=== PATIENT | male | born 1990 | race Caucasian/White ===

== ENCOUNTER 2016-08-15 11:05 | Emergency (ER) | payer OTHER ==
[~2016-08-15] VITALS: Ht 182.9 cm; Wt 94.4 kg
[~2016-08-15 11:05] MED LIST: 24HOUR ALLERGY10 MG PO; ACIDOPHILUS LA1 EACH PO; ALEVE220 MG PO; ATIVAN1 MG PO; AUGMENTIN875 MG PO; BLOOD LANCETS1 EACH MC; CLONAZEPAM1 MG PO; CLONAZEPAM2 MG PO; COUMADIN5 MG PO; COUMADIN7.5 MG PO; CYMBALTA60 MG PO; DESYREL 150 MG150 MG PO; DESYREL100 MG PO; DULOXETINE HCL60 MG PO; DURAGESIC100 MCG TD; DURAGESIC50 MCG TD; FENTANYL1 EAC1 TD; FEOSOL325 MG PO; FERROUS SULFAT325 MG PO; FOLIC ACID1 MG PO; GABAPENTIN600 MG PO; GABAPENTIN800 MG PO; GLUCOCARD VITA1 EAC2 MC; GLUCOCOM LANCE1 EAC1 MC; GLUCOPHAGE500 MG PO; HUMALOG100 UNIT/1 SC; IMIQUIMOD1 EACH TP; IRON325 MG PO; KLONOPIN1 MG PO; KLONOPIN2 MG PO; LANTUS 3 M100 UNITS1 SC; LEVEMIR FL100 UNIT/1 SC; LEVEMIR100 UNIT/2 SC; LEVOFLOXACIN750 MG PO; LIBRIUM25 MG PO; LOVENOX150 MG/1 M SC; LOVENOX80 MG/0.8 SC; METRONIDAZOLE500 MG PO; NEURONTIN600 MG PO; NICODERM CQ1 EAC2 TD; NICOTINE PATCH1 EAC2 TD; NOVOLOG 10100 UNITS/ SC; NOVOLOG MI100 UNIT/4 SC; NOVOLOG PE100 UNITS/ SC; OLANZAPINE10 MG PO; OXYCODONE HCL10 MG PO; OXYCODONE HCL15 MG PO; OXYCODONE HCL5 MG PO; OXYCODONE-APAP1 EACH PO; PANTOPRAZOLE SO40 MG PO; PERCOCET 5/31 TABLET PO; PROBIOTIC1 EAC1 PO; QUETIAPINE FUM100 MG PO; QUETIAPINE FUMA50 MG PO; ROXICODONE15 MG PO; SEROQUEL100 MG PO; SEROQUEL50 MG PO; SERTRALINE HCL100 MG PO; SILVER NITRATE1 EACH TP; SYMBICORT60 INHALAT IH; TRAZODONE HCL150 MG PO; TYLENOL EXTRA500 MG PO; VENTOLIN HFA18 GM IH; VITAMIN B12-FO1 EACH PO; WARFARIN SODIU7.5 MG PO; WARFARIN SODIUM1 MG PO; WARFARIN SODIUM5 MG PO; XARELTO15 MG PO; XARELTO20 MG PO; ZOLOFT100 MG PO; ZYRTEC10 M2 PO; ZYRTEC10 M3 PO; [UNRECOGNIZED DRUG - OTHER] MC; [UNRECOGNIZED DRUG - REMARK]
[2016-08-15 12:15] LABS: HEMATOCRIT 41.6 % (38.0-50.0); MCH 27.5 PG (29.0-34.0); MCHC 32.7 G/DL (30.0-36.0); MEAN PLAT.VOLUME 9.7 uM^3 (9.0-12.4); PLATELET COUNT 359 K/uL (156-360); RBC DIS.WIDTH-CV 18.3 % (11.8-14.6); RBC DIS.WIDTH-SD 56.6 % (39-53); RED BLOOD COUNT 4.95 M/uL (4.00-5.50)
[2016-08-15 12:58] LABS: CHLORIDE 105 mEq/L (99-109); POTASSIUM 3.2 mEq/L (3.7-5.4); SODIUM 141 mEq/L (136-147)
[2016-08-15 13:00] LABS: GLUCOSE 70 mg/dL (70-99)
[2016-08-15 13:01] LABS: ANION GAP 8 MEQ/L (2-14)
[2016-08-15 13:02] LABS: TOTAL BILIRUBIN 0.2 mg/dL (0.0-1.0)
[2016-08-15 13:03] LABS: ALKALINE PHOSPHATASE 95 IU/L (3-129); SERUM ETHYL ALCOHOL < 10 mg/dL
[2016-08-15 13:04] LABS: GFR ESTIMATE (CALCULATED) > 59 mL/min/
[2016-08-15 13:05] LABS: UREA NITROGEN (BUN) 10 mg/dL (9-23)
[2016-08-15 13:07] LABS: CREATINE KINASE 106 IU/L (1-294)
[2016-08-15 13:54] LABS: ADD MIUA? NO; BILIRUBIN NEGATIVE; BLOOD NEGATIVE; COLOR YELLOW ((YELLOW)); GLUCOSE (STRIP) >=1000; KETONES NEGATIVE; LEUKOCYTES NEGATIVE; NITRITE NEGATIVE; PROTEIN (STRIP) NEGATIVE; SPECIFIC GRAVITY 1.021 (1.000-1.030); UCUL ADDED? NO; UROBILINOGEN 0.2 MG/DL (0.2-1.0)
[2016-08-15 14:04] LABS: ADD MEDTOX COMMENT Y; AMPHETAMINE PRESUMPTIVE POSITIVE (500 ng/mL); BARBITURATES NEGATIVE (200 ng/mL); BENZODIAZEPINES NEGATIVE (150 ng/mL); COCAINE PRESUMPTIVE POSITIVE (150 ng/mL); INTERNAL CONTROLS VALID? YES; METHADONE NEGATIVE (200 ng/mL); METHAMPHETAMINE NEGATIVE (500 ng/mL); OPIATES (MORPHINE) PRESUMPTIVE POSITIVE (100 ng/mL); OXYCODONE NEGATIVE (100 ng/mL); PHENCYCLIDINE NEGATIVE (25 ng/mL); PROPOXYPHENE NEGATIVE (300 ng/mL); THC CANNABINOIDS NEGATIVE (50 ng/mL); TRICYCLIC ANTIDEPRESSANTS NEGATIVE (300 ng/mL)
[2016-08-15 15:23] VITALS: BP 106/58
== END 2016-08-15 15:24 | disposition home or self-care (01) ==
LOC: EME 11:05
PROVIDERS: Emergency Medicine
DX: F19.10 Other psychoactive substance abuse, uncomplicated (principal); E87.6 Hypokalemia; J45.909 Unspecified asthma, uncomplicated; G89.29 Other chronic pain; K21.9 Gastro-esophageal reflux disease without esophagitis; E11.9 Type 2 diabetes mellitus without complications; B19.20 Unspecified viral hepatitis C without hepatic coma; Z86.711 Personal history of pulmonary embolism; Z79.4 Long term (current) use of insulin; F17.200 Nicotine dependence, unspecified, uncomplicated
CPT/HCPCS: 80053; 81003; 82550; 84999; 85027; 99281; 99285; G0480; J7030

== ENCOUNTER 2016-09-11 13:53 | Emergency (ER) | payer OTHER ==
[~2016-09-11] VITALS: Ht 185.4 cm; Wt 87.9 kg
[2016-09-11 14:30] VITALS: BP 123/79
[2016-09-11 14:51] LABS: MCH 28.4 PG (29.0-34.0); MCHC 33.3 G/DL (30.0-36.0); MCV 85.3 FL (86-99); RBC DIS.WIDTH-CV 17.1 % (11.8-14.6); RBC DIS.WIDTH-SD 53.5 % (39-53); RED BLOOD COUNT 4.57 M/uL (4.00-5.50); WHITE BLOOD COUNT 7.5 K/uL (4.1-10.2)
[2016-09-11 15:03] LABS: CHLORIDE 100 mEq/L (99-109); POTASSIUM 4.6 mEq/L (3.7-5.4); SODIUM 133 mEq/L (136-147)
[2016-09-11 15:06] LABS: ANION GAP 12 MEQ/L (2-14)
[2016-09-11 15:07] LABS: TOTAL BILIRUBIN 0.3 mg/dL (0.0-1.0)
[2016-09-11 15:09] LABS: ALKALINE PHOSPHATASE 110 IU/L (3-129); GFR ESTIMATE (CALCULATED) > 59 mL/min/
[2016-09-11 15:10] LABS: UREA NITROGEN (BUN) 11 mg/dL (9-23)
[2016-09-11 15:16] LABS: TROP-I INTERPRETATION NEGATIVE; TROPONIN-I < 0.01 ng/mL (0.0-0.30)
[2016-09-11 15:27] LABS: INTER. NORMALIZED RATIO 1.5
[2016-09-11 15:31] VITALS: BP 111/65
[2016-09-11 15:31] LABS: GLUCOSE 525 mg/dL (70-99)
[2016-09-11 16:00] VITALS: BP 124/80
[2016-09-11 16:28] LABS: MEAN PLAT.VOLUME 11.3 uM^3 (9.0-12.4)
[2016-09-11 16:31] VITALS: BP 119/74
[2016-09-11 16:57] LABS: PLATELET COUNT 207 K/uL (156-360)
[2016-09-11] MEDS ORDERED: ZITHROMAX250 MG PO (16:59)
[2016-09-11 17:00] VITALS: BP 119/74
[2016-09-11 17:00] LABS: POINT-OF-CARE METER ID UU13113702
== END 2016-09-11 17:05 | disposition left against medical advice (07) ==
LOC: EME → EDBD 13:53 → EME 17:05
PROVIDERS: Emergency Medicine
DX: J18.9 Pneumonia, unspecified organism (principal); E11.65 Type 2 diabetes mellitus with hyperglycemia; M25.512 Pain in left shoulder; M54.2 Cervicalgia; Z86.711 Personal history of pulmonary embolism; Z86.718 Personal history of other venous thrombosis and embolism; Z79.01 Long term (current) use of anticoagulants; J45.909 Unspecified asthma, uncomplicated; G89.29 Other chronic pain; Z79.4 Long term (current) use of insulin; Z79.891 Long term (current) use of opiate analgesic; F17.200 Nicotine dependence, unspecified, uncomplicated
CPT/HCPCS: 71275; 80053; 82948; 84484; 85027; 85610; 93005; 99281; 99284

== ENCOUNTER 2016-09-17 21:11 | Emergency (ER) | payer OTHER ==
[~2016-09-17] VITALS: Ht 185.4 cm; Wt 83.7 kg
[~2016-09-17 21:11] MED LIST changes: +ZITHROMAX250 MG PO
[2016-09-17 22:51] LABS: HEMATOCRIT 37.9 % (38.0-50.0); MCH 28.8 PG (29.0-34.0); MCHC 33.8 G/DL (30.0-36.0); MCV 85.4 FL (86-99); RBC DIS.WIDTH-CV 16.3 % (11.8-14.6); RBC DIS.WIDTH-SD 50.1 % (39-53); RED BLOOD COUNT 4.44 M/uL (4.00-5.50); WHITE BLOOD COUNT 6.9 K/uL (4.1-10.2)
[2016-09-17 23:00] LABS: CHLORIDE 94 mEq/L (99-109); POTASSIUM 4.4 mEq/L (3.7-5.4); SODIUM 131 mEq/L (136-147)
[2016-09-17 23:03] LABS: ANION GAP 16 MEQ/L (2-14)
[2016-09-17 23:05] LABS: ALKALINE PHOSPHATASE 96 IU/L (3-129)
[2016-09-17 23:06] LABS: GFR ESTIMATE (CALCULATED) > 59 mL/min/
[2016-09-17 23:06] LABS: AMPHETAMINE NEGATIVE (500 ng/mL); BARBITURATES NEGATIVE (200 ng/mL); BENZODIAZEPINES NEGATIVE (150 ng/mL); COCAINE NEGATIVE (150 ng/mL); METHADONE NEGATIVE (200 ng/mL); METHAMPHETAMINE NEGATIVE (500 ng/mL); OPIATES (MORPHINE) NEGATIVE (100 ng/mL); OXYCODONE NEGATIVE (100 ng/mL); PHENCYCLIDINE NEGATIVE (25 ng/mL); PROPOXYPHENE NEGATIVE (300 ng/mL); THC CANNABINOIDS PRESUMPTIVE POSITIVE (50 ng/mL); TRICYCLIC ANTIDEPRESSANTS NEGATIVE (300 ng/mL)
[2016-09-17 23:07] LABS: UREA NITROGEN (BUN) 14 mg/dL (9-23)
[2016-09-17 23:07] LABS: ADD MEDTOX COMMENT Y; INTERNAL CONTROLS VALID? YES
[2016-09-17 23:08] LABS: INTER. NORMALIZED RATIO 2.9; PROTHROMBIN TIME 30.9 (9.2-11.2)
[2016-09-17 23:09] LABS: LIPASE 14 U/L (1.0-51.0)
[2016-09-17 23:26] LABS: MEAN PLAT.VOLUME 10.1 uM^3 (9.0-12.4)
[2016-09-17 23:32] LABS: ADD MIUA? NO; BILIRUBIN NEGATIVE; BLOOD NEGATIVE; COLOR YELLOW ((YELLOW)); GLUCOSE (STRIP) >=1000; KETONES 40; LEUKOCYTES NEGATIVE; NITRITE NEGATIVE; PROTEIN (STRIP) NEGATIVE; SPECIFIC GRAVITY 1.038 (1.000-1.030); UCUL ADDED? NO; UROBILINOGEN 0.2 MG/DL (0.2-1.0)
[2016-09-17 23:33] LABS: GLUCOSE 599 mg/dL (70-99); TOTAL BILIRUBIN 0.1 mg/dL (0.0-1.0)
[2016-09-17 23:41] LABS: PLATELET COUNT 290 K/uL (156-360)
[2016-09-18 01:19] LABS: POINT-OF-CARE METER ID UU14100415; POINT-OF-CARE USER ID HMLKAV
[2016-09-18 02:07] LABS: CHLORIDE 103 mEq/L (99-109); POTASSIUM 3.9 mEq/L (3.7-5.4); SODIUM 137 mEq/L (136-147)
[2016-09-18 02:09] LABS: GLUCOSE 330 mg/dL (70-99)
[2016-09-18 02:11] LABS: ANION GAP 13 MEQ/L (2-14)
[2016-09-18 02:13] LABS: GFR ESTIMATE (CALCULATED) > 59 mL/min/
[2016-09-18 02:14] LABS: UREA NITROGEN (BUN) 11 mg/dL (9-23)
[2016-09-18 03:01] VITALS: BP 94/58
== END 2016-09-18 03:02 | disposition home or self-care (01) ==
LOC: EME 21:11
PROVIDERS: Emergency Medicine
DX: E10.65 Type 1 diabetes mellitus with hyperglycemia (principal); E86.0 Dehydration; R53.1 Weakness; F19.10 Other psychoactive substance abuse, uncomplicated; Z79.4 Long term (current) use of insulin; J45.909 Unspecified asthma, uncomplicated; K21.9 Gastro-esophageal reflux disease without esophagitis; Z86.711 Personal history of pulmonary embolism; F17.200 Nicotine dependence, unspecified, uncomplicated; Z79.01 Long term (current) use of anticoagulants; Z79.891 Long term (current) use of opiate analgesic
CPT/HCPCS: 71010; 80048; 80053; 81003; 82009; 82800; 82948; 83605; 83690; 84999; 85027; 85610; 85730; 93005; 99281; 99284; J7030

== ENCOUNTER 2016-09-25 14:48 | Inpatient (IN) | payer OTHER ==
[~2016-09-25] VITALS: Ht 188 cm; Wt 78.0 kg
[2016-09-25] VITALS (7 sets, daily range): BP systolic 90–115; BP diastolic 49–69
[2016-09-25 16:00] LABS: BASOPHIL COUNT 0.1 K/uL (0-0.1); EOSINOPHIL (%) 0.6 % (0-5); EOSINOPHIL COUNT 0.1 K/uL (0-0.3); HEMATOCRIT 45.4 % (38.0-50.0); IMMATURE GRANULOCYTE (%) 0.5 % (0.0-0.7); IMMATURE GRANULOCYTE COUNT 0.4 K/uL; LYMPHOCYTE COUNT 2.3 K/uL (1.0-2.8); MCH 28.3 PG (29.0-34.0); MCHC 33.3 G/DL (30.0-36.0); MEAN PLAT.VOLUME 9.8 uM^3 (9.0-12.4); MONOCYTE (%) 9.9 % (3-12); MONOCYTE COUNT 0.8 K/uL (0-0.8); NEUTROPHIL (%) 59.5 % (45-76); NEUTROPHIL COUNT 4.8 K/uL (1.8-6.4); PLATELET COUNT 366 K/uL (156-360); RBC DIS.WIDTH-CV 15.9 % (11.8-14.6); RBC DIS.WIDTH-SD 49.4 % (39-53)
[2016-09-25 16:07] LABS: CHLORIDE 97 mEq/L (99-109); POTASSIUM 4.1 mEq/L (3.7-5.4); SODIUM 131 mEq/L (136-147)
[2016-09-25 16:09] LABS: RED BLOOD COUNT 5.34 M/uL (4.00-5.50)
[2016-09-25 16:10] LABS: INTER. NORMALIZED RATIO 1.2
[2016-09-25 16:11] LABS: ANION GAP 28 MEQ/L (2-14); CARBON DIOXIDE (BICARBONATE) 8.5 MEQ/L (20-31)
[2016-09-25 16:13] LABS: GFR ESTIMATE (CALCULATED) > 59 mL/min/
[2016-09-25 16:16] LABS: GLUCOSE 454 mg/dL (70-99)
[2016-09-25 16:20] LABS: UREA NITROGEN (BUN) 10 mg/dL (9-23)
[2016-09-25] MEDS ORDERED: NEURONTIN600 MG PO (16:43)
[2016-09-25] MEDS ORDERED: COUMADIN7.5 MG PO (16:44)
[2016-09-25 17:16] LABS: Estimated Average Glucose 375 mg/dL (70-123)
[2016-09-25 17:17] LABS: HEMOGLOBIN A1c (GLYCOHEMOGLOB) 14.7 % HGB (Below 5.7)
[2016-09-25 17:57] LABS: POINT-OF-CARE METER ID UU14100415
[2016-09-25 19:34] LABS: METH RESISTANT S AUREUS PCR NEGATIVE (NEGATIVE)
[2016-09-25 19:36] LABS: PROBE CHECK PASS; SPECIMEN PROCESSING CONTROL PASS
[2016-09-25 20:16] LABS: ANION GAP 20 MEQ/L (2-14); CHLORIDE 104 MEQ/L (99-109); POTASSIUM 3.8 MEQ/L (3.7-5.4); SAMPLE HEMOLYSIS CHECK 0; SAMPLE ICTERIC CHECK 0; SAMPLE LIPEMIA CHECK 0; SODIUM 134 MEQ/L (136-147)
[2016-09-25 20:33] LABS: GFR ESTIMATE (CALCULATED) > 59 mL/min/; GLUCOSE 241 mg/dL (70-99); UREA NITROGEN (BUN) 8 mg/dL (9-23)
[2016-09-25 23:14] LABS: INFLUENZA A VIRAL ANTIGEN NEGATIVE; INFLUENZA B VIRAL ANTIGEN NEGATIVE
[2016-09-26] VITALS (20 sets, daily range): BP systolic 86–139; BP diastolic 34–79
[2016-09-26 01:06] LABS: POTASSIUM 3.5 mEq/L (3.7-5.4); SODIUM 136 mEq/L (136-147)
[2016-09-26 01:08] LABS: GLUCOSE 180 mg/dL (70-99)
[2016-09-26 01:10] LABS: ANION GAP 14 MEQ/L (2-14)
[2016-09-26 01:12] LABS: GFR ESTIMATE (CALCULATED) > 59 mL/min/
[2016-09-26 01:13] LABS: UREA NITROGEN (BUN) 8 mg/dL (9-23)
[2016-09-26 01:18] LABS: CHLORIDE 109 mEq/L (99-109)
[2016-09-26 01:54] LABS: POINT-OF-CARE METER ID UU13113803
[2016-09-26 02:56] LABS: POINT-OF-CARE METER ID UU13113803
[2016-09-26 04:13] LABS: CHLORIDE 108 mEq/L (99-109); POTASSIUM 3.9 mEq/L (3.7-5.4); SODIUM 139 mEq/L (136-147)
[2016-09-26 04:14] LABS: GLUCOSE 137 mg/dL (70-99)
[2016-09-26 04:16] LABS: ANION GAP 15 MEQ/L (2-14)
[2016-09-26 04:18] LABS: GFR ESTIMATE (CALCULATED) > 59 mL/min/
[2016-09-26 04:19] LABS: UREA NITROGEN (BUN) 8 mg/dL (9-23)
[2016-09-26 05:05] LABS: POINT-OF-CARE METER ID UU13113803
[2016-09-26 05:29] LABS: POINT-OF-CARE METER ID UU13113803
[2016-09-26 06:31] LABS: POINT-OF-CARE METER ID UU13113803
[2016-09-26 07:35] LABS: AMPHETAMINES QUANT VALUE 0 NG/ML; BARBITUATES QUANT VALUE 0 NG/ML; BENZODIAZEPINES QUANT VALUE 0 NG/ML; BENZODIAZEPINES, URINE SCREEN Negative (200 ng/mL); OPIATES QUANTITATIVE VALUE 0 NG/ML; PHENCYCLIDINE QUANT VALUE 0 NG/ML
[2016-09-26 07:38] LABS: POINT-OF-CARE METER ID UU13113803
[2016-09-26 08:38] LABS: POINT-OF-CARE METER ID UU13113803
[2016-09-26 09:05] LABS: ANION GAP 16 MEQ/L (2-14); CHLORIDE 106 MEQ/L (99-109); POTASSIUM 4.1 MEQ/L (3.7-5.4); SAMPLE HEMOLYSIS CHECK 0; SAMPLE ICTERIC CHECK 0; SAMPLE LIPEMIA CHECK 0; SODIUM 138 MEQ/L (136-147)
[2016-09-26 09:10] LABS: GLUCOSE 123 mg/dL (70-99); UREA NITROGEN (BUN) 8 mg/dL (9-23)
[2016-09-26 09:19] LABS: GFR ESTIMATE (CALCULATED) > 59 mL/min/
[2016-09-26 09:41] LABS: POINT-OF-CARE METER ID UU13113803
[2016-09-26 10:45] LABS: POINT-OF-CARE METER ID UU13113803
[2016-09-26 11:47] LABS: POINT-OF-CARE METER ID UU13113803
[2016-09-26 12:25] LABS: POINT-OF-CARE METER ID UU13113778
[2016-09-26 12:36] LABS: POINT-OF-CARE METER ID UU13113803
[2016-09-26 12:49] LABS: ANION GAP 13 MEQ/L (2-14); CHLORIDE 104 MEQ/L (99-109); POTASSIUM 3.4 MEQ/L (3.7-5.4); SAMPLE HEMOLYSIS CHECK 1; SAMPLE ICTERIC CHECK 0; SAMPLE LIPEMIA CHECK 0; SODIUM 134 MEQ/L (136-147)
[2016-09-26 12:55] LABS: GFR ESTIMATE (CALCULATED) > 59 mL/min/; GLUCOSE 166 mg/dL (70-99); UREA NITROGEN (BUN) 7 mg/dL (9-23)
[2016-09-26 14:50] LABS: POINT-OF-CARE METER ID UU13113803
[2016-09-26 17:13] LABS: ANION GAP 13 MEQ/L (2-14); CHLORIDE 100 MEQ/L (99-109); POTASSIUM 3.7 MEQ/L (3.7-5.4); SAMPLE HEMOLYSIS CHECK 0; SAMPLE ICTERIC CHECK 0; SAMPLE LIPEMIA CHECK 0; SODIUM 132 MEQ/L (136-147)
[2016-09-26 17:14] LABS: POINT-OF-CARE METER ID UU13113803
[2016-09-26 17:19] LABS: GFR ESTIMATE (CALCULATED) > 59 mL/min/; GLUCOSE 318 mg/dL (70-99); UREA NITROGEN (BUN) 5 mg/dL (9-23)
[2016-09-26 21:15] LABS: POINT-OF-CARE METER ID UU13113803
[2016-09-26 22:28] LABS: POINT-OF-CARE METER ID UU13113803
[2016-09-27] VITALS (7 sets, daily range): BP systolic 110–169; BP diastolic 59–94
[2016-09-27 05:56] LABS: POINT-OF-CARE METER ID UU13113803
[2016-09-27 06:09] LABS: POINT-OF-CARE METER ID UU13113803
[2016-09-27 06:10] LABS: HEMATOCRIT 39.3 % (38.0-50.0); MCH 28.8 PG (29.0-34.0); MCHC 34.6 G/DL (30.0-36.0); MCV 83.1 FL (86-99); MEAN PLAT.VOLUME 10.4 uM^3 (9.0-12.4); PLATELET COUNT 258 K/uL (156-360); RBC DIS.WIDTH-CV 15.8 % (11.8-14.6); RBC DIS.WIDTH-SD 47.5 % (39-53); RED BLOOD COUNT 4.73 M/uL (4.00-5.50); WHITE BLOOD COUNT 3.7 K/uL (4.1-10.2)
[2016-09-27 06:40] LABS: ANION GAP 12 MEQ/L (2-14); CHLORIDE 104 MEQ/L (99-109); GFR ESTIMATE (CALCULATED) > 59 mL/min/; MAGNESIUM 1.6 mg/dl (1.3-2.7); POTASSIUM 3.1 MEQ/L (3.7-5.4); SAMPLE HEMOLYSIS CHECK 0; SAMPLE ICTERIC CHECK 0; SAMPLE LIPEMIA CHECK 0; UREA NITROGEN (BUN) 3 mg/dL (9-23)
[2016-09-27 06:45] LABS: GLUCOSE 61 mg/dL (70-99); SODIUM 140 MEQ/L (136-147)
[2016-09-27 07:59] LABS: POINT-OF-CARE METER ID UU14174217
[2016-09-27 12:42] LABS: POINT-OF-CARE METER ID UU14188577
[2016-09-27] MEDS ORDERED: XARELTO20 MG PO (15:00)
[2016-09-27 17:03] LABS: POINT-OF-CARE METER ID UU14149397
[2016-09-28 04:34] VITALS: BP 117/57
[2016-09-28 05:41] LABS: MCH 28.5 PG (29.0-34.0); MCHC 33.6 G/DL (30.0-36.0); MCV 84.9 FL (86-99); MEAN PLAT.VOLUME 10.4 uM^3 (9.0-12.4); PLATELET COUNT 259 K/uL (156-360); RBC DIS.WIDTH-CV 16.2 % (11.8-14.6); RBC DIS.WIDTH-SD 49.7 % (39-53); RED BLOOD COUNT 4.24 M/uL (4.00-5.50); WHITE BLOOD COUNT 4.4 K/uL (4.1-10.2)
[2016-09-28 05:47] LABS: EOSINOPHIL (%) 1.1 % (0-5); EOSINOPHIL COUNT 0.1 K/uL (0-0.3); IMMATURE GRANULOCYTE (%) 0.5 % (0.0-0.7); LYMPHOCYTE COUNT 1.5 K/uL (1.0-2.8); MONOCYTE (%) 11.3 % (3-12); MONOCYTE COUNT 0.5 K/uL (0-0.8); NEUTROPHIL (%) 52.4 % (45-76); NEUTROPHIL COUNT 2.3 K/uL (1.8-6.4)
[2016-09-28 06:07] LABS: ANION GAP 11 MEQ/L (2-14); CHLORIDE 99 MEQ/L (99-109); GFR ESTIMATE (CALCULATED) > 59 mL/min/; MAGNESIUM 1.7 mg/dl (1.3-2.7); SAMPLE HEMOLYSIS CHECK 0; SAMPLE ICTERIC CHECK 0; SAMPLE LIPEMIA CHECK 0; SODIUM 138 MEQ/L (136-147); UREA NITROGEN (BUN) 5 mg/dL (9-23)
[2016-09-28 06:09] LABS: GLUCOSE 323 mg/dL (70-99)
[2016-09-28 07:22] VITALS: BP 120/72
[2016-09-28] MEDS ORDERED: NICOTINE PATCH1 EAC2 TD (12:04)
[2016-09-28] MEDS ORDERED: OXYCODONE HCL15 MG PO (12:04)
[2016-09-28] MEDS ORDERED: FENTANYL1 EAC1 TD (12:04)
[2016-09-28] MEDS ORDERED: XARELTO20 MG PO (12:04)
[2016-09-28] MEDS ORDERED: NEURONTIN600 MG PO (12:04)
[2016-09-28 15:40] VITALS: BP 144/100
[2016-09-28 17:05] VITALS: BP 129/82
== END 2016-09-28 17:51 | disposition home or self-care (01) | DRG 638 ==
LOC: EME 14:48 → 4WEST 17:06 → EDOF 17:06 → 4WEST 18:04 → 3EAST 09-27 11:29
PROVIDERS: Emergency Medicine; Hospitalist; Internal Medicine; Internal Medicine Critical Care Medicine; Internal Medicine Nephrology
DX: E10.10 Type 1 diabetes mellitus with ketoacidosis without coma (principal); R65.10 Systemic inflammatory response syndrome (SIRS) of non-infectious origin without acute organ dysfunction; E83.39 Other disorders of phosphorus metabolism; E86.0 Dehydration; E87.6 Hypokalemia; E10.649 Type 1 diabetes mellitus with hypoglycemia without coma; J45.909 Unspecified asthma, uncomplicated; F32.9 Major depressive disorder, single episode, unspecified; K21.9 Gastro-esophageal reflux disease without esophagitis; B19.20 Unspecified viral hepatitis C without hepatic coma; G89.29 Other chronic pain; F14.90 Cocaine use, unspecified, uncomplicated; F12.90 Cannabis use, unspecified, uncomplicated; F15.90 Other stimulant use, unspecified, uncomplicated; F17.210 Nicotine dependence, cigarettes, uncomplicated; Z79.4 Long term (current) use of insulin; Z79.01 Long term (current) use of anticoagulants; Z91.14 Patient's other noncompliance with medication regimen; Z86.711 Personal history of pulmonary embolism; Z86.718 Personal history of other venous thrombosis and embolism; Z88.5 Allergy status to narcotic agent
CPT/HCPCS: 71010; 80048; 80048 91; 80306 90; 82803; 82948; 83036; 83605; 83735; 84100; 84132 91; 85025; 85027; 85610; 87502; 87641; 93005; 94640; 94640 76; 99281; 99285; J1644; J1815; J3010; J7030; J7040; J7050; J7120

== ENCOUNTER 2016-11-05 21:46 | Emergency (ER) | payer OTHER ==
[~2016-11-05] VITALS: Ht 185.4 cm; Wt 88.4 kg
[2016-11-05 22:34] LABS: HEMATOCRIT 38.1 % (38.0-50.0); MCHC 32.8 G/DL (30.0-36.0); MCV 91.4 FL (86-99); MEAN PLAT.VOLUME 9.6 uM^3 (9.0-12.4); PLATELET COUNT 283 K/uL (156-360); RBC DIS.WIDTH-CV 13.5 % (11.8-14.6); RBC DIS.WIDTH-SD 45.5 % (39-53); RED BLOOD COUNT 4.17 M/uL (4.00-5.50); WHITE BLOOD COUNT 4.8 K/uL (4.1-10.2)
[2016-11-05 22:41] LABS: CHLORIDE 95 mEq/L (99-109); POTASSIUM 4.1 mEq/L (3.7-5.4); SODIUM 131 mEq/L (136-147)
[2016-11-05 22:44] LABS: ANION GAP 15 MEQ/L (2-14)
[2016-11-05 22:45] LABS: GLUCOSE 726 mg/dL (70-99); TOTAL BILIRUBIN 0.4 mg/dL (0.0-1.0)
[2016-11-05 22:46] LABS: ALKALINE PHOSPHATASE 115 IU/L (3-129)
[2016-11-05 22:47] LABS: GFR ESTIMATE (CALCULATED) > 59 mL/min/
[2016-11-05 22:48] LABS: UREA NITROGEN (BUN) 8 mg/dL (9-23)
[2016-11-06 01:03] LABS: CARBON DIOXIDE (BICARBONATE) 32.2 MEQ/L (20-31)
[2016-11-06 01:25] LABS: MAGNESIUM 2.2 mg/dL (1.3-2.7)
[2016-11-06 01:33] LABS: LIPASE 7 U/L (1.0-51.0)
[2016-11-06 01:35] LABS: TROP-I INTERPRETATION NEGATIVE; TROPONIN-I < 0.01 ng/mL (0.0-0.30)
[2016-11-06] MEDS ORDERED: BACTRIM,SEPT1 TABLET PO (04:05)
[2016-11-06 05:00] LABS: POINT-OF-CARE METER ID UU14100415
[2016-11-06 05:09] VITALS: BP 104/57
[2016-11-08 12:30] LABS: POINT-OF-CARE METER ID UU13113778
== END 2016-11-06 05:11 | disposition home or self-care (01) ==
LOC: EME 21:46
PROVIDERS: Emergency Medicine
PROC: 0H9DXZZ Drainage of Right Lower Arm Skin, External Approach (ICD-10-PCS; principal; 2016-11-05)
DX: L02.413 Cutaneous abscess of right upper limb (principal); S93.402A Sprain of unspecified ligament of left ankle, initial encounter; E11.9 Type 2 diabetes mellitus without complications; Z79.4 Long term (current) use of insulin; F19.10 Other psychoactive substance abuse, uncomplicated; Z91.14 Patient's other noncompliance with medication regimen; J45.909 Unspecified asthma, uncomplicated; F31.9 Bipolar disorder, unspecified; K21.9 Gastro-esophageal reflux disease without esophagitis; B19.20 Unspecified viral hepatitis C without hepatic coma; Z86.711 Personal history of pulmonary embolism; F17.200 Nicotine dependence, unspecified, uncomplicated
CPT/HCPCS: 73610; 80053; 81003; 82010; 82803; 82948; 83605; 83690; 83735; 84100; 84484; 85027; 87040; 93971; 99281; 99285; J2405; J3010; J7030

== ENCOUNTER 2016-11-23 21:37 | Inpatient (IN) | payer OTHER ==
[~2016-11-23] VITALS: Ht 185.4 cm; Wt 82.2 kg
[~2016-11-23 21:37] MED LIST changes: +BACTRIM,SEPT1 TABLET PO
[2016-11-23 22:12] LABS: EOSINOPHIL (%) 0.3 % (0-5); HEMATOCRIT 43.7 % (38.0-50.0); IMMATURE GRANULOCYTE (%) 0.4 % (0.0-0.7); INSTRUMENT ABS NEUTROPHIL CT 5.1 K/uL; LYMPHOCYTE COUNT 1.6 K/uL (1.0-2.8); MCH 29.8 PG (29.0-34.0); MCV 90.3 FL (86-99); MEAN PLAT.VOLUME 9.7 uM^3 (9.0-12.4); MONOCYTE (%) 4.5 % (3-12); MONOCYTE COUNT 0.3 K/uL (0-0.8); NEUTROPHIL (%) 71.8 % (45-76); NEUTROPHIL COUNT 5.1 K/uL (1.8-6.4); PLATELET COUNT 393 K/uL (156-360); RBC DIS.WIDTH-CV 13.2 % (11.8-14.6); RBC DIS.WIDTH-SD 43.4 % (39-53); RED BLOOD COUNT 4.84 M/uL (4.00-5.50); WHITE BLOOD COUNT 7.1 K/uL (4.1-10.2)
[2016-11-23 22:19] LABS: CHLORIDE 99 mEq/L (99-109); POTASSIUM 4.3 mEq/L (3.7-5.4); SODIUM 135 mEq/L (136-147)
[2016-11-23 22:22] LABS: ANION GAP 23 MEQ/L (2-14)
[2016-11-23 22:25] LABS: GFR ESTIMATE (CALCULATED) > 59 mL/min/
[2016-11-23 22:26] LABS: UREA NITROGEN (BUN) 17 mg/dL (9-23)
[2016-11-23 22:31] LABS: TROP-I INTERPRETATION NEGATIVE; TROPONIN-I < 0.01 ng/mL (0.0-0.30)
[2016-11-23 22:35] LABS: GLUCOSE 427 mg/dL (70-99)
[2016-11-23] MEDS ORDERED: DURAGESIC50 MCG TD (23:14)
[2016-11-23] MEDS ORDERED: OXYCODONE HCL15 MG PO (23:16)
[2016-11-23] MEDS ORDERED: VYVANSE40 MG PO (23:17)
[2016-11-23 23:46] LABS: POINT-OF-CARE METER ID UU13113702
[2016-11-24] VITALS (23 sets, daily range): BP systolic 83–133; BP diastolic 35–85
[2016-11-24 00:46] LABS: POINT-OF-CARE METER ID UU13113731
[2016-11-24 00:52] LABS: CHLORIDE 104 mEq/L (99-109); POTASSIUM 4.1 mEq/L (3.7-5.4); SODIUM 136 mEq/L (136-147)
[2016-11-24 00:53] LABS: GLUCOSE 312 mg/dL (70-99)
[2016-11-24 00:55] LABS: ANION GAP 18 MEQ/L (2-14)
[2016-11-24 00:57] LABS: GFR ESTIMATE (CALCULATED) > 59 mL/min/
[2016-11-24 00:58] LABS: UREA NITROGEN (BUN) 17 mg/dL (9-23)
[2016-11-24 01:53] LABS: METH RESISTANT S AUREUS PCR NEGATIVE (NEGATIVE)
[2016-11-24 01:55] LABS: POINT-OF-CARE METER ID UU13113731
[2016-11-24 01:55] LABS: PROBE CHECK PASS; SPECIMEN PROCESSING CONTROL PASS
[2016-11-24 02:00] LABS: TROP-I INTERPRETATION NEGATIVE; TROPONIN-I < 0.01 ng/mL (0.0-0.30)
[2016-11-24 02:46] LABS: INTER. NORMALIZED RATIO 1.1; PROTHROMBIN TIME 11.1 (9.2-11.2); PTT 22.7 (25-32)
[2016-11-24 02:57] LABS: POINT-OF-CARE METER ID UU13113731
[2016-11-24 04:24] LABS: POINT-OF-CARE METER ID UU13113731; POINT-OF-CARE USER ID ENVSME70
[2016-11-24 05:46] LABS: POINT-OF-CARE METER ID UU13113803
[2016-11-24 05:50] LABS: ANION GAP 15 MEQ/L (2-14); CHLORIDE 105 MEQ/L (99-109); GFR ESTIMATE (CALCULATED) > 59 mL/min/; GLUCOSE 207 mg/dL (70-99); POTASSIUM 3.8 MEQ/L (3.7-5.4); SAMPLE HEMOLYSIS CHECK 0; SAMPLE ICTERIC CHECK 0; SAMPLE LIPEMIA CHECK 0; SODIUM 138 MEQ/L (136-147); UREA NITROGEN (BUN) 17 mg/dL (9-23)
[2016-11-24 07:08] LABS: POINT-OF-CARE METER ID UU13113803
[2016-11-24 07:57] LABS: POINT-OF-CARE METER ID UU13113803
[2016-11-24 08:14] LABS: ANION GAP 9 MEQ/L (2-14); CHLORIDE 108 MEQ/L (99-109); POTASSIUM 3.6 MEQ/L (3.7-5.4); SAMPLE HEMOLYSIS CHECK 0; SAMPLE ICTERIC CHECK 0; SAMPLE LIPEMIA CHECK 0; SODIUM 138 MEQ/L (136-147)
[2016-11-24 08:20] LABS: GFR ESTIMATE (CALCULATED) > 59 mL/min/; GLUCOSE 222 mg/dL (70-99); UREA NITROGEN (BUN) 15 mg/dL (9-23)
[2016-11-24 09:12] LABS: POINT-OF-CARE METER ID UU13113803
[2016-11-24 09:54] LABS: POINT-OF-CARE METER ID UU13113803
[2016-11-24 10:27] LABS: POINT-OF-CARE METER ID UU13113803
[2016-11-24 11:26] LABS: POINT-OF-CARE METER ID UU13113803
[2016-11-24 11:40] LABS: POINT-OF-CARE METER ID UU13113803
[2016-11-24 12:29] LABS: ANION GAP 6 MEQ/L (2-14); CHLORIDE 107 MEQ/L (99-109); GFR ESTIMATE (CALCULATED) > 59 mL/min/; POTASSIUM 3.5 MEQ/L (3.7-5.4); SAMPLE HEMOLYSIS CHECK 0; SAMPLE ICTERIC CHECK 0; SAMPLE LIPEMIA CHECK 0; SODIUM 136 MEQ/L (136-147); UREA NITROGEN (BUN) 14 mg/dL (9-23)
[2016-11-24 12:34] LABS: POINT-OF-CARE METER ID UU13113803
[2016-11-24 12:36] LABS: GLUCOSE 95 mg/dL (70-99)
[2016-11-24 13:10] LABS: POINT-OF-CARE METER ID UU13113803
[2016-11-24 13:52] LABS: POINT-OF-CARE METER ID UU14162636
[2016-11-24 14:15] LABS: POINT-OF-CARE METER ID UU13113803
[2016-11-24 17:15] LABS: ANION GAP 6 MEQ/L (2-14); CHLORIDE 107 MEQ/L (99-109); SAMPLE HEMOLYSIS CHECK 0; SAMPLE ICTERIC CHECK 0; SAMPLE LIPEMIA CHECK 0; SODIUM 135 MEQ/L (136-147)
[2016-11-24 17:20] LABS: GFR ESTIMATE (CALCULATED) > 59 mL/min/; UREA NITROGEN (BUN) 13 mg/dL (9-23)
[2016-11-24 17:22] LABS: GLUCOSE 325 mg/dL (70-99); POTASSIUM 4.3 MEQ/L (3.7-5.4)
[2016-11-24 18:09] LABS: POINT-OF-CARE METER ID UU13113803
[2016-11-24 20:42] LABS: ANION GAP 6 MEQ/L (2-14); CHLORIDE 104 MEQ/L (99-109); GFR ESTIMATE (CALCULATED) > 59 mL/min/; GLUCOSE 348 mg/dL (70-99); POTASSIUM 4.2 MEQ/L (3.7-5.4); SAMPLE HEMOLYSIS CHECK 0; SAMPLE ICTERIC CHECK 0; SAMPLE LIPEMIA CHECK 1; SODIUM 134 MEQ/L (136-147); UREA NITROGEN (BUN) 11 mg/dL (9-23)
[2016-11-24 21:48] LABS: POINT-OF-CARE METER ID UU14162636; POINT-OF-CARE USER ID PHATLC
[2016-11-25] VITALS (15 sets, daily range): BP systolic 82–148; BP diastolic 42–100
[2016-11-25 01:43] LABS: CHLORIDE 107 mEq/L (99-109); POTASSIUM 3.6 mEq/L (3.7-5.4); SODIUM 139 mEq/L (136-147)
[2016-11-25 01:45] LABS: GLUCOSE 211 mg/dL (70-99)
[2016-11-25 01:46] LABS: ANION GAP 11 MEQ/L (2-14)
[2016-11-25 01:49] LABS: GFR ESTIMATE (CALCULATED) > 59 mL/min/
[2016-11-25 01:50] LABS: UREA NITROGEN (BUN) 9 mg/dL (9-23)
[2016-11-25 02:30] LABS: POINT-OF-CARE METER ID UU13113731; POINT-OF-CARE USER ID PHATLC
[2016-11-25 03:41] LABS: POINT-OF-CARE METER ID UU13113731; POINT-OF-CARE USER ID PHATLC
[2016-11-25 04:32] LABS: POINT-OF-CARE METER ID UU13113731; POINT-OF-CARE USER ID PHATLC
[2016-11-25 05:57] LABS: POINT-OF-CARE METER ID UU14162636; POINT-OF-CARE USER ID PHATLC
[2016-11-25 06:38] LABS: EOSINOPHIL (%) 1.1 % (0-5); EOSINOPHIL COUNT 0.1 K/uL (0-0.3); HEMATOCRIT 37.8 % (38.0-50.0); IMMATURE GRANULOCYTE (%) 0.4 % (0.0-0.7); INSTRUMENT ABS NEUTROPHIL CT 3.7 K/uL; LYMPHOCYTE COUNT 2.8 K/uL (1.0-2.8); MCH 29.6 PG (29.0-34.0); MCHC 33.1 G/DL (30.0-36.0); MCV 89.6 FL (86-99); MONOCYTE (%) 8.2 % (3-12); MONOCYTE COUNT 0.6 K/uL (0-0.8); NEUTROPHIL COUNT 3.7 K/uL (1.8-6.4); RBC DIS.WIDTH-CV 13.1 % (11.8-14.6); RED BLOOD COUNT 4.22 M/uL (4.00-5.50); WHITE BLOOD COUNT 7.2 K/uL (4.1-10.2)
[2016-11-25 06:45] LABS: INTER. NORMALIZED RATIO 1.1; PROTHROMBIN TIME 11.5 (9.2-11.2); PTT 41.1 (25-32)
[2016-11-25 07:00] LABS: Estimated Average Glucose 344 mg/dL (70-123); HEMOGLOBIN A1c (GLYCOHEMOGLOB) 13.6 % HGB (Below 5.7)
[2016-11-25 07:45] LABS: MEAN PLAT.VOLUME 9.8 uM^3 (9.0-12.4); PLAT.SUFFICIENCY ADEQUATE
[2016-11-25 08:26] LABS: PLATELET COUNT 272 K/uL (156-360)
[2016-11-25 10:58] LABS: POINT-OF-CARE METER ID UU14162636
[2016-11-25 11:50] LABS: POINT-OF-CARE METER ID UU13113702
[2016-11-25 14:13] LABS: POINT-OF-CARE METER ID UU14162636
[2016-11-25 17:38] LABS: POINT-OF-CARE METER ID UU13113731
[2016-11-25 21:50] LABS: POINT-OF-CARE METER ID UU14162636
[2016-11-26 01:14] LABS: CHLORIDE 104 mEq/L (99-109); POTASSIUM 3.7 mEq/L (3.7-5.4); SODIUM 139 mEq/L (136-147)
[2016-11-26 01:15] LABS: GLUCOSE 271 mg/dL (70-99)
[2016-11-26 01:17] LABS: ANION GAP 12 MEQ/L (2-14)
[2016-11-26 01:19] LABS: GFR ESTIMATE (CALCULATED) > 59 mL/min/
[2016-11-26 01:20] LABS: UREA NITROGEN (BUN) 7 mg/dL (9-23)
[2016-11-26 02:46] LABS: POINT-OF-CARE METER ID UU14174225
[2016-11-26 06:06] LABS: POINT-OF-CARE METER ID UU14174225; POINT-OF-CARE USER ID BHSKTD
[2016-11-26 06:49] LABS: HEMATOCRIT 39.9 % (38.0-50.0); MCH 30.1 PG (29.0-34.0); MCHC 33.6 G/DL (30.0-36.0); MCV 89.7 FL (86-99); MEAN PLAT.VOLUME 9.8 uM^3 (9.0-12.4); PLATELET COUNT 284 K/uL (156-360); RBC DIS.WIDTH-CV 13.1 % (11.8-14.6); RBC DIS.WIDTH-SD 43.4 % (39-53); RED BLOOD COUNT 4.45 M/uL (4.00-5.50); WHITE BLOOD COUNT 5.6 K/uL (4.1-10.2)
[2016-11-26 07:08] LABS: INTER. NORMALIZED RATIO 1.2
[2016-11-26 07:19] LABS: ANION GAP 8 MEQ/L (2-14); CHLORIDE 106 MEQ/L (99-109); GFR ESTIMATE (CALCULATED) > 59 mL/min/; GLUCOSE 243 mg/dL (70-99); POTASSIUM 3.9 MEQ/L (3.7-5.4); SAMPLE HEMOLYSIS CHECK 0; SAMPLE ICTERIC CHECK 0; SAMPLE LIPEMIA CHECK 0; SODIUM 142 MEQ/L (136-147); UREA NITROGEN (BUN) 7 mg/dL (9-23)
[2016-11-26 07:31] VITALS: BP 94/53
[2016-11-26 09:57] LABS: POINT-OF-CARE METER ID UU14188625
[2016-11-26 11:21] VITALS: BP 129/68
[2016-11-26 11:34] LABS: POINT-OF-CARE METER ID UU14188625
[2016-11-26 15:02] LABS: POINT-OF-CARE METER ID UU14174225
[2016-11-26 17:34] LABS: POINT-OF-CARE METER ID UU14174225
[2016-11-26 19:46] VITALS: BP 137/80
[2016-11-26 21:30] LABS: POINT-OF-CARE METER ID UU14174225
[2016-11-26 23:31] VITALS: BP 94/52
[2016-11-27 00:56] LABS: CHLORIDE 101 mEq/L (99-109); POTASSIUM 4.6 mEq/L (3.7-5.4); SODIUM 137 mEq/L (136-147)
[2016-11-27 00:59] LABS: ANION GAP 10 MEQ/L (2-14)
[2016-11-27 01:01] LABS: GFR ESTIMATE (CALCULATED) > 59 mL/min/
[2016-11-27 01:02] LABS: UREA NITROGEN (BUN) 10 mg/dL (9-23)
[2016-11-27 01:05] LABS: GLUCOSE 391 mg/dL (70-99)
[2016-11-27 03:49] VITALS: BP 112/59
[2016-11-27 06:22] LABS: EOSINOPHIL COUNT 0.1 K/uL (0-0.3); HEMATOCRIT 39.3 % (38.0-50.0); IMMATURE GRANULOCYTE (%) 0.4 % (0.0-0.7); INSTRUMENT ABS NEUTROPHIL CT 2.2 K/uL; LYMPHOCYTE COUNT 2.2 K/uL (1.0-2.8); MCH 30.2 PG (29.0-34.0); MCHC 33.1 G/DL (30.0-36.0); MCV 91.2 FL (86-99); MEAN PLAT.VOLUME 10.3 uM^3 (9.0-12.4); MONOCYTE (%) 8.8 % (3-12); MONOCYTE COUNT 0.4 K/uL (0-0.8); NEUTROPHIL COUNT 2.2 K/uL (1.8-6.4); PLATELET COUNT 286 K/uL (156-360); RBC DIS.WIDTH-CV 13.2 % (11.8-14.6); RBC DIS.WIDTH-SD 45.1 % (39-53); RED BLOOD COUNT 4.31 M/uL (4.00-5.50); WHITE BLOOD COUNT 4.9 K/uL (4.1-10.2)
[2016-11-27 06:54] LABS: INTER. NORMALIZED RATIO 1.1; PROTHROMBIN TIME 10.7 (9.2-11.2)
[2016-11-27 07:38] LABS: ANION GAP 9 MEQ/L (2-14); CHLORIDE 99 MEQ/L (99-109); GFR ESTIMATE (CALCULATED) > 59 mL/min/; POTASSIUM 4.7 MEQ/L (3.7-5.4); SAMPLE HEMOLYSIS CHECK 0; SAMPLE ICTERIC CHECK 0; SAMPLE LIPEMIA CHECK 0; SODIUM 137 MEQ/L (136-147); UREA NITROGEN (BUN) 10 mg/dL (9-23)
[2016-11-27 07:40] LABS: GLUCOSE 414 mg/dL (70-99)
[2016-11-27 07:43] LABS: POINT-OF-CARE METER ID UU14188625
[2016-11-27 07:52] VITALS: BP 114/65
[2016-11-27 12:36] VITALS: BP 155/74
[2016-11-27] MEDS ORDERED: CLONAZEPAM1 MG PO (12:49)
[2016-11-27] MEDS ORDERED: NICOTINE PATCH1 EAC2 TD (12:49)
[2016-11-27] MEDS ORDERED: DURAGESIC50 MCG TD (12:49)
[2016-11-27] MEDS ORDERED: NOVOLOG 10100 UNITS/ SC (12:49)
[2016-11-27] MEDS ORDERED: OXYCODONE HCL15 MG PO (12:49)
[2016-11-27] MEDS ORDERED: XARELTO20 MG PO (12:52)
[2016-11-27] MEDS ORDERED: LEVEMIR100 UNIT/2 SC (12:52)
== END 2016-11-27 15:23 | disposition home or self-care (01) | DRG 638 ==
LOC: EME → EDBD 21:37 → EME 21:37 → 5SOUTH 23:39 → 4WEST 23:39 → EDOF 23:39 → 4WEST 11-24 00:09 → 5SOUTH 11-25 21:42
PROVIDERS: Emergency Medicine; Internal Medicine; Surgery Surgical Critical Care
DX: E10.10 Type 1 diabetes mellitus with ketoacidosis without coma (principal); I82.511 Chronic embolism and thrombosis of right femoral vein; R07.9 Chest pain, unspecified; Z91.14 Patient's other noncompliance with medication regimen; Z86.711 Personal history of pulmonary embolism; B18.2 Chronic viral hepatitis C; F31.9 Bipolar disorder, unspecified; F41.9 Anxiety disorder, unspecified; R56.9 Unspecified convulsions; D64.9 Anemia, unspecified; J45.909 Unspecified asthma, uncomplicated; K21.9 Gastro-esophageal reflux disease without esophagitis; G43.909 Migraine, unspecified, not intractable, without status migrainosus; G89.29 Other chronic pain; F17.200 Nicotine dependence, unspecified, uncomplicated; F14.10 Cocaine abuse, uncomplicated; F11.10 Opioid abuse, uncomplicated
CPT/HCPCS: 70450; 71010; 71101; 80048; 80048 91; 82803; 82948; 83036; 83605; 84100; 84484; 85025; 85027; 85610; 85730; 87641; 93005; 93970; 94640; 94640 76; 99202; 99281; 99285; J1815; J1885; J3010; J3480; J7030; J7040; J7050

== ENCOUNTER 2017-01-01 22:26 | Inpatient (IN) | payer OTHER ==
[~2017-01-01] VITALS: Ht 185.4 cm; Wt 87.2 kg
[~2017-01-01 22:26] MED LIST changes: +VYVANSE40 MG PO
[2017-01-01 23:20] LABS: CARBON DIOXIDE (BICARBONATE) 15.2 MEQ/L (20-31)
[2017-01-01 23:21] LABS: BASOPHIL COUNT 0.1 K/uL (0-0.1); EOSINOPHIL (%) 0.3 % (0-5); HEMATOCRIT 36.4 % (38.0-50.0); IMMATURE GRANULOCYTE (%) 1.7 % (0.0-0.7); IMMATURE GRANULOCYTE COUNT 0.2 K/uL; LYMPHOCYTE COUNT 1.9 K/uL (1.0-2.8); MCH 30.5 PG (29.0-34.0); MCV 92.6 FL (86-99); MEAN PLAT.VOLUME 10.2 uM^3 (9.0-12.4); MONOCYTE (%) 13.3 % (3-12); MONOCYTE COUNT 1.7 K/uL (0-0.8); NEUTROPHIL (%) 69.7 % (45-76); PLATELET COUNT 299 K/uL (156-360); RBC DIS.WIDTH-SD 43.9 % (39-53); RED BLOOD COUNT 3.93 M/uL (4.00-5.50); WHITE BLOOD COUNT 12.9 K/uL (4.1-10.2)
[2017-01-01 23:31] LABS: CHLORIDE 95 mEq/L (99-109); POTASSIUM 4.4 mEq/L (3.7-5.4); SODIUM 131 mEq/L (136-147)
[2017-01-01 23:34] LABS: ANION GAP 24 MEQ/L (2-14)
[2017-01-01 23:35] LABS: TOTAL BILIRUBIN 0.3 mg/dL (0.0-1.0)
[2017-01-01 23:36] LABS: SERUM ETHYL ALCOHOL < 10 mg/dL
[2017-01-01 23:37] LABS: ALKALINE PHOSPHATASE 115 IU/L (3-129); GFR ESTIMATE (CALCULATED) > 59 mL/min/
[2017-01-01 23:38] LABS: UREA NITROGEN (BUN) 17 mg/dL (9-23)
[2017-01-01 23:39] LABS: GLUCOSE 655 mg/dL (70-99)
[2017-01-01 23:40] LABS: LIPASE 34 U/L (1.0-51.0)
[2017-01-02 01:47] LABS: ADD MEDTOX COMMENT Y; AMPHETAMINE NEGATIVE (500 ng/mL); BARBITURATES NEGATIVE (200 ng/mL); BENZODIAZEPINES NEGATIVE (150 ng/mL); COCAINE PRESUMPTIVE POSITIVE (150 ng/mL); INTERNAL CONTROLS VALID? YES; METHADONE NEGATIVE (200 ng/mL); METHAMPHETAMINE NEGATIVE (500 ng/mL); OPIATES (MORPHINE) NEGATIVE (100 ng/mL); OXYCODONE NEGATIVE (100 ng/mL); PHENCYCLIDINE NEGATIVE (25 ng/mL); PROPOXYPHENE NEGATIVE (300 ng/mL); THC CANNABINOIDS PRESUMPTIVE POSITIVE (50 ng/mL); TRICYCLIC ANTIDEPRESSANTS NEGATIVE (300 ng/mL)
[2017-01-02 02:47] LABS: POINT-OF-CARE METER ID UU13113702
[2017-01-02 03:22] LABS: POINT-OF-CARE METER ID UU13113702; POINT-OF-CARE USER ID HMLKAV
[2017-01-02 03:36] VITALS: BP 149/104
[2017-01-02 04:16] VITALS: BP 149/104
[2017-01-02 05:00] VITALS: BP 130/82
[2017-01-02 05:03] LABS: POTASSIUM 3.8 mEq/L (3.7-5.4)
[2017-01-02 05:05] LABS: CHLORIDE 108 mEq/L (99-109); GLUCOSE 192 mg/dL (70-99); SODIUM 139 mEq/L (136-147)
[2017-01-02 05:06] LABS: ANION GAP 16 MEQ/L (2-14)
[2017-01-02 05:09] LABS: GFR ESTIMATE (CALCULATED) > 59 mL/min/
[2017-01-02 05:10] LABS: UREA NITROGEN (BUN) 12 mg/dL (9-23)
[2017-01-02 06:00] VITALS: BP 87/83
[2017-01-02 06:51] LABS: METH RESISTANT S AUREUS PCR NEGATIVE (NEGATIVE)
[2017-01-02 07:00] LABS: PROBE CHECK PASS; SPECIMEN PROCESSING CONTROL PASS
[2017-01-02 07:32] LABS: Estimated Average Glucose 321 mg/dL (70-123); HEMOGLOBIN A1c (GLYCOHEMOGLOB) 12.8 % HGB (Below 5.7)
[2017-01-02 07:46] LABS: POINT-OF-CARE USER ID NUTJLF39
[2017-01-02 08:00] VITALS: BP 122/67
[2017-01-02 08:58] LABS: CHLORIDE 110 mEq/L (99-109); SODIUM 141 mEq/L (136-147)
[2017-01-02 08:59] LABS: MAGNESIUM 2.5 mg/dL (1.3-2.7)
[2017-01-02 09:00] LABS: GLUCOSE 151 mg/dL (70-99)
[2017-01-02 09:01] LABS: ANION GAP 13 MEQ/L (2-14)
[2017-01-02 09:03] LABS: POINT-OF-CARE USER ID NUTJLF39
[2017-01-02 09:04] LABS: GFR ESTIMATE (CALCULATED) > 59 mL/min/
[2017-01-02 09:05] LABS: UREA NITROGEN (BUN) 11 mg/dL (9-23)
[2017-01-02] MEDS ORDERED: FEROSUL325 MG PO (09:23)
[2017-01-02] MEDS ORDERED: ZUBSOLV 8.6-2.1 EACH SL (09:24)
[2017-01-02] MEDS ORDERED: DURAGESIC50 MCG TD (09:25)
[2017-01-02] MEDS ORDERED: ZOLOFT100 MG PO (09:26)
[2017-01-02] MEDS ORDERED: VYVANSE40 MG PO (09:27)
[2017-01-02] MEDS ORDERED: LEVEMIR100 UNIT/2 SC (09:28)
[2017-01-02] MEDS ORDERED: NOVOLOG 10100 UNITS/ SC (09:32)
[2017-01-02] MEDS ORDERED: XARELTO20 MG PO (09:39)
[2017-01-02] MEDS ORDERED: NEURONTIN600 MG PO (09:41)
[2017-01-02] MEDS ORDERED: KLONOPIN1 MG PO (09:42)
[2017-01-02] MEDS ORDERED: SEROQUEL100 MG PO (09:43)
[2017-01-02] MEDS ORDERED: ZYRTEC10 M3 PO (09:44)
[2017-01-02] MEDS ORDERED: OXYCODONE HCL20 M1 PO ×2 (09:45→09:46)
[2017-01-02] MEDS ORDERED: ADVIL200 MG PO ×2 (09:47→09:48)
[2017-01-02] MEDS ORDERED: WART REMOVER TP (09:49)
[2017-01-02] MEDS ORDERED: GOLD BOND MEDI283 G1 TP (09:50)
[2017-01-02] MEDS ORDERED: NICODERM CQ1 EAC2 TD (09:58)
[2017-01-02 13:50] LABS: POINT-OF-CARE USER ID NUTJLF39
[2017-01-02 14:07] LABS: CHLORIDE 106 mEq/L (99-109); SODIUM 137 mEq/L (136-147)
[2017-01-02 14:10] LABS: ANION GAP 12 MEQ/L (2-14)
[2017-01-02 14:12] LABS: GFR ESTIMATE (CALCULATED) > 59 mL/min/
[2017-01-02 14:13] LABS: UREA NITROGEN (BUN) 9 mg/dL (9-23)
[2017-01-02 14:22] LABS: GLUCOSE 231 mg/dL (70-99)
[2017-01-02 16:19] LABS: CHLORIDE 107 mEq/L (99-109); POTASSIUM 3.7 mEq/L (3.7-5.4); SODIUM 138 mEq/L (136-147)
[2017-01-02 16:21] LABS: GLUCOSE 185 mg/dL (70-99)
[2017-01-02 16:22] LABS: ANION GAP 10 MEQ/L (2-14)
[2017-01-02 16:25] LABS: GFR ESTIMATE (CALCULATED) > 59 mL/min/
[2017-01-02 16:26] LABS: UREA NITROGEN (BUN) 9 mg/dL (9-23)
[2017-01-02 17:17] LABS: POINT-OF-CARE USER ID NUTJLF39
[2017-01-02 19:47] VITALS: BP 144/87
[2017-01-02 20:21] LABS: CHLORIDE 106 mEq/L (99-109); POTASSIUM 3.8 mEq/L (3.7-5.4); SODIUM 138 mEq/L (136-147)
[2017-01-02 20:23] LABS: GLUCOSE 247 mg/dL (70-99)
[2017-01-02 20:25] LABS: ANION GAP 11 MEQ/L (2-14)
[2017-01-02 20:27] LABS: GFR ESTIMATE (CALCULATED) > 59 mL/min/
[2017-01-02 20:28] LABS: UREA NITROGEN (BUN) 9 mg/dL (9-23)
[2017-01-02 23:09] LABS: POINT-OF-CARE METER ID UU14174217; POINT-OF-CARE USER ID 609231305
[2017-01-03 08:00] VITALS: BP 125/81
[2017-01-03 10:36] LABS: CHLORIDE 104 mEq/L (99-109); POTASSIUM 3.9 mEq/L (3.7-5.4); SODIUM 137 mEq/L (136-147)
[2017-01-03 10:38] LABS: GLUCOSE 252 mg/dL (70-99)
[2017-01-03 10:40] LABS: ANION GAP 11 MEQ/L (2-14)
[2017-01-03 10:42] LABS: GFR ESTIMATE (CALCULATED) > 59 mL/min/
[2017-01-03 10:43] LABS: UREA NITROGEN (BUN) 6 mg/dL (9-23)
[2017-01-03 12:00] VITALS: BP 126/82
[2017-01-03 14:00] VITALS: BP 129/78
[2017-01-03 21:17] LABS: ADD MIUA? YES; BILIRUBIN NEGATIVE; BLOOD SMALL; COLOR STRAW ((YELLOW)); GLUCOSE (STRIP) >=500; KETONES 5; LEUKOCYTES NEGATIVE; NITRITE NEGATIVE; PROTEIN (STRIP) NEGATIVE; SPECIFIC GRAVITY 1.017 (1.000-1.030); UROBILINOGEN 0.2 MG/DL (0.2-1.0)
[2017-01-03 21:30] LABS: BACTERIA NONE SEEN /HPF; EPITHELIAL CELLS NONE SEEN /HPF; MUCUS NONE SEEN /LPF; RED BLOOD CELLS 0-5 /HPF (0-5); UCUL ADDED? NO; WHITE BLOOD CELLS 0-5 /HPF (0-5)
[2017-01-03 23:55] VITALS: BP 136/79
[2017-01-04 07:00] LABS: ANION GAP 7 MEQ/L (2-14); CHLORIDE 103 MEQ/L (99-109); GFR ESTIMATE (CALCULATED) > 59 mL/min/; GLUCOSE 328 mg/dL (70-99); POTASSIUM 3.7 MEQ/L (3.7-5.4); SAMPLE HEMOLYSIS CHECK 0; SAMPLE ICTERIC CHECK 0; SAMPLE LIPEMIA CHECK 0; SODIUM 139 MEQ/L (136-147); UREA NITROGEN (BUN) 6 mg/dL (9-23)
[2017-01-04 07:09] LABS: HEMATOCRIT 30.7 % (38.0-50.0); MCHC 33.9 G/DL (30.0-36.0); MCV 94.5 FL (86-99); MEAN PLAT.VOLUME 9.8 uM^3 (9.0-12.4); PLATELET COUNT 213 K/uL (156-360); RBC DIS.WIDTH-CV 13.4 % (11.8-14.6); RED BLOOD COUNT 3.25 M/uL (4.00-5.50)
[2017-01-04 07:12] LABS: WHITE BLOOD COUNT 4.5 K/uL (4.1-10.2)
[2017-01-04 07:47] VITALS: BP 123/79
[2017-01-04 15:26] VITALS: BP 145/101
[2017-01-04 20:51] LABS: POINT-OF-CARE METER ID UU13113725
[2017-01-04 22:45] VITALS: BP 132/90
[2017-01-05 07:45] VITALS: BP 125/89
[2017-01-05] MEDS ORDERED: CLONAZEPAM0.5 MG PO (09:13)
[2017-01-05] MEDS ORDERED: LEVEMIR100 UNIT/2 SC (09:13)
[2017-01-05] MEDS ORDERED: XARELTO20 MG PO (09:13)
[2017-01-05] MEDS ORDERED: OXYCODONE HCL5 MG PO (09:13)
[2017-01-05 11:39] LABS: POINT-OF-CARE METER ID UU13113725
[2017-01-05] MEDS ORDERED: OXYCODONE HCL10 MG PO (11:58)
[2017-01-07 11:09] LABS: POINT-OF-CARE METER ID UU14100415
[2017-01-07 11:10] LABS: POINT-OF-CARE METER ID UU14100415
== END 2017-01-05 13:10 | disposition home or self-care (01) | DRG 638 ==
LOC: EME 22:26 → 5EAST 01-02 02:51 → EDOF 01-02 02:51 → 4WEST 01-02 03:36 → 5EAST 01-03 12:25 → EDBD 01-05 13:10
PROVIDERS: Emergency Medicine; Hospitalist; Internal Medicine; Internal Medicine Critical Care Medicine
DX: E10.10 Type 1 diabetes mellitus with ketoacidosis without coma (principal); N17.9 Acute kidney failure, unspecified; F33.9 Major depressive disorder, recurrent, unspecified; F11.20 Opioid dependence, uncomplicated; E87.1 Hypo-osmolality and hyponatremia; D50.9 Iron deficiency anemia, unspecified; B18.2 Chronic viral hepatitis C; F14.10 Cocaine abuse, uncomplicated; F12.10 Cannabis abuse, uncomplicated; F17.210 Nicotine dependence, cigarettes, uncomplicated; Y92.019 Unspecified place in single-family (private) house as the place of occurrence of the external cause; G89.29 Other chronic pain; Z59.0 Homelessness; R33.9 Retention of urine, unspecified; L29.0 Pruritus ani; K64.9 Unspecified hemorrhoids; R91.1 Solitary pulmonary nodule; Z91.14 Patient's other noncompliance with medication regimen; Z86.718 Personal history of other venous thrombosis and embolism; J45.909 Unspecified asthma, uncomplicated; F43.20 Adjustment disorder, unspecified; Z86.711 Personal history of pulmonary embolism; R74.0 Nonspecific elevation of levels of transaminase and lactic acid dehydrogenase [LDH]; Z91.11 Patient's noncompliance with dietary regimen; R51 Headache; R10.9 Unspecified abdominal pain; Y04.2XXA Assault by strike against or bumped into by another person, initial encounter
CPT/HCPCS: 70450; 74176; 76770; 80048; 80048 91; 80076; 81003; 82010; 82803; 82948; 83036; 83690; 83735; 84100; 84999; 85025; 85027; 87641; 99281; 99285; G0480; J1815; J2405; J3010; J7030; J7042; J7050

== ENCOUNTER 2017-01-09 00:35 | Inpatient (IN) | payer OTHER ==
[2017-01-09] VITALS (10 sets, daily range): BP systolic 105–149; BP diastolic 63–95
[~2017-01-09] VITALS: Ht 185.4 cm; Wt 78.9 kg
[~2017-01-09 00:35] MED LIST changes: +ADVIL200 MG PO; +CLONAZEPAM0.5 MG PO; +FEROSUL325 MG PO; +GOLD BOND MEDI283 G1 TP; +OXYCODONE HCL20 M1 PO; +WART REMOVER TP; +ZUBSOLV 8.6-2.1 EACH SL
[2017-01-09 01:24] LABS: BASE EXCESS -15.7 mEq/L (-3 to +3); BICARBONATE 10.2 mEq/L (22-26); CARBOXY HGB 1.1 % (0-5); METHEMOGLOBIN 0.5 % (0-1.5); PCO2 25 mm Hg (35-45); PO2 112 mm Hg (80-100); pH 7.22 (7.35-7.45)
[2017-01-09 01:25] LABS: COMMENTS - BLOOD GASES C+; FI02 21 %; SITE RR
[2017-01-09 01:28] LABS: BASOPHIL COUNT 0.1 K/uL (0-0.1); EOSINOPHIL (%) 0 % (0-5); HEMATOCRIT 47.8 % (38.0-50.0); IMMATURE GRANULOCYTE (%) 2.3 % (0.0-0.7); IMMATURE GRANULOCYTE COUNT 0.2 K/uL; INSTRUMENT ABS NEUTROPHIL CT 6.7 K/uL; LYMPHOCYTE COUNT 0.9 K/uL (1.0-2.8); MCH 30.9 PG (29.0-34.0); MCHC 32.6 G/DL (30.0-36.0); MCV 94.7 FL (86-99); MEAN PLAT.VOLUME 9.5 uM^3 (9.0-12.4); MONOCYTE (%) 5.1 % (3-12); MONOCYTE COUNT 0.4 K/uL (0-0.8); NEUTROPHIL (%) 80.8 % (45-76); NEUTROPHIL COUNT 6.7 K/uL (1.8-6.4); PLATELET COUNT 413 K/uL (156-360); RBC DIS.WIDTH-CV 13.2 % (11.8-14.6); RBC DIS.WIDTH-SD 45.5 % (39-53); RED BLOOD COUNT 5.05 M/uL (4.00-5.50); WHITE BLOOD COUNT 8.3 K/uL (4.1-10.2)
[2017-01-09 01:32] LABS: CHLORIDE 89 mEq/L (99-109); POTASSIUM 5.8 mEq/L (3.7-5.4); SODIUM 127 mEq/L (136-147)
[2017-01-09 01:33] LABS: GLUCOSE 601 mg/dL (70-99)
[2017-01-09 01:34] LABS: ANION GAP 27 MEQ/L (2-14)
[2017-01-09 01:38] LABS: GFR ESTIMATE (CALCULATED) > 59 mL/min/; UREA NITROGEN (BUN) 21 mg/dL (9-23)
[2017-01-09 03:47] LABS: ADD MIUA? NO; BILIRUBIN NEGATIVE; BLOOD NEGATIVE; COLOR STRAW ((YELLOW)); GLUCOSE (STRIP) >=500; KETONES 80; LEUKOCYTES NEGATIVE; NITRITE NEGATIVE; PROTEIN (STRIP) NEGATIVE; SPECIFIC GRAVITY 1.027 (1.000-1.030); UCUL ADDED? NO; UROBILINOGEN 0.2 MG/DL (0.2-1.0)
[2017-01-09 03:55] LABS: POINT-OF-CARE METER ID UU14100415
[2017-01-09 04:35] LABS: CHLORIDE 96 mEq/L (99-109); SODIUM 130 mEq/L (136-147)
[2017-01-09 04:37] LABS: GLUCOSE 367 mg/dL (70-99)
[2017-01-09 04:38] LABS: ANION GAP 20 MEQ/L (2-14); POTASSIUM 4.4 mEq/L (3.7-5.4)
[2017-01-09 04:41] LABS: GFR ESTIMATE (CALCULATED) > 59 mL/min/
[2017-01-09 04:42] LABS: UREA NITROGEN (BUN) 21 mg/dL (9-23)
[2017-01-09 05:00] LABS: POINT-OF-CARE METER ID UU14100415
[2017-01-09 06:06] LABS: POINT-OF-CARE METER ID UU13113731
[2017-01-09 06:40] LABS: METH RESISTANT S AUREUS PCR NEGATIVE (NEGATIVE)
[2017-01-09 06:41] LABS: PROBE CHECK PASS; SPECIMEN PROCESSING CONTROL PASS
[2017-01-09 06:52] LABS: Estimated Average Glucose 318 mg/dL (70-123); HEMOGLOBIN A1c (GLYCOHEMOGLOB) 12.7 % HGB (Below 5.7)
[2017-01-09 07:09] LABS: POINT-OF-CARE METER ID UU13113731
[2017-01-09 07:30] LABS: AMPHETAMINES QUANT VALUE 0 NG/ML; BARBITUATES QUANT VALUE 0 NG/ML; BENZODIAZEPINES QUANT VALUE 0 NG/ML; BENZODIAZEPINES, URINE SCREEN Negative (200 ng/mL); MARIJUANA QUANT VALUE 0 NG/ML; OPIATES QUANTITATIVE VALUE 0 NG/ML; PHENCYCLIDINE QUANT VALUE 0 NG/ML
[2017-01-09 08:39] LABS: POINT-OF-CARE METER ID UU14162636
[2017-01-09 08:46] LABS: TROP-I INTERPRETATION NEGATIVE; TROPONIN-I < 0.01 ng/mL (0.0-0.30)
[2017-01-09 09:12] LABS: ANION GAP 13 MEQ/L (2-14); CHLORIDE 101 MEQ/L (99-109); CREATINE KINASE 24 IU/L (1-294); GFR ESTIMATE (CALCULATED) > 59 mL/min/; GLUCOSE 213 mg/dL (70-99); POTASSIUM 4.3 MEQ/L (3.7-5.4); SAMPLE HEMOLYSIS CHECK 0; SAMPLE ICTERIC CHECK 0; SAMPLE LIPEMIA CHECK 0; SODIUM 132 MEQ/L (136-147); UREA NITROGEN (BUN) 18 mg/dL (9-23)
[2017-01-09 09:31] LABS: POINT-OF-CARE METER ID UU14162636; POINT-OF-CARE USER ID 606021424
[2017-01-09 10:47] LABS: POINT-OF-CARE METER ID UU13113731
[2017-01-09 11:41] LABS: POINT-OF-CARE METER ID UU13113731
[2017-01-09] MEDS ORDERED: FEROSUL325 MG PO (11:44)
[2017-01-09] MEDS ORDERED: ADVIL200 MG PO (11:46)
[2017-01-09] MEDS ORDERED: ROXICODONE15 MG PO (11:48)
[2017-01-09] MEDS ORDERED: KLONOPIN1 MG PO (11:49)
[2017-01-09] MEDS ORDERED: NEURONTIN600 MG PO (11:50)
[2017-01-09] MEDS ORDERED: SEROQUEL100 MG PO (11:51)
[2017-01-09] MEDS ORDERED: ZOLOFT100 MG PO (11:51)
[2017-01-09] MEDS ORDERED: LEVEMIR100 UNIT/2 SC (11:54)
[2017-01-09 12:49] LABS: POINT-OF-CARE METER ID UU13113731
[2017-01-09 13:07] LABS: ANION GAP 12 MEQ/L (2-14); CHLORIDE 101 MEQ/L (99-109); GFR ESTIMATE (CALCULATED) > 59 mL/min/; GLUCOSE 208 mg/dL (70-99); POTASSIUM 4.2 MEQ/L (3.7-5.4); SAMPLE HEMOLYSIS CHECK 0; SAMPLE ICTERIC CHECK 0; SAMPLE LIPEMIA CHECK 0; SODIUM 132 MEQ/L (136-147); UREA NITROGEN (BUN) 16 mg/dL (9-23)
[2017-01-09 13:59] LABS: POINT-OF-CARE METER ID UU14162636
[2017-01-09 14:13] LABS: POINT-OF-CARE METER ID UU14100415
[2017-01-09 15:25] LABS: POINT-OF-CARE METER ID UU14162636
[2017-01-09 16:19] LABS: POINT-OF-CARE METER ID UU14162636; POINT-OF-CARE USER ID 606021424
[2017-01-09 16:43] LABS: ANION GAP 11 MEQ/L (2-14); CHLORIDE 101 MEQ/L (99-109); GFR ESTIMATE (CALCULATED) > 59 mL/min/; GLUCOSE 114 mg/dL (70-99); POTASSIUM 3.8 MEQ/L (3.7-5.4); SAMPLE HEMOLYSIS CHECK 0; SAMPLE ICTERIC CHECK 0; SAMPLE LIPEMIA CHECK 0; SODIUM 133 MEQ/L (136-147); UREA NITROGEN (BUN) 16 mg/dL (9-23)
[2017-01-09 20:46] LABS: ANION GAP 12 MEQ/L (2-14); CHLORIDE 100 MEQ/L (99-109); POTASSIUM 4.4 MEQ/L (3.7-5.4); SAMPLE HEMOLYSIS CHECK 0; SAMPLE ICTERIC CHECK 0; SAMPLE LIPEMIA CHECK 1; SODIUM 132 MEQ/L (136-147)
[2017-01-09 21:19] LABS: GFR ESTIMATE (CALCULATED) > 59 mL/min/; GLUCOSE 388 mg/dL (70-99); UREA NITROGEN (BUN) 17 mg/dL (9-23)
[2017-01-10] VITALS (11 sets, daily range): BP systolic 104–139; BP diastolic 61–92
[2017-01-10 00:46] LABS: POINT-OF-CARE METER ID UU14174217; POINT-OF-CARE USER ID PHATLC
[2017-01-10 01:09] LABS: CHLORIDE 104 mEq/L (99-109); POTASSIUM 4.1 mEq/L (3.7-5.4); SODIUM 131 mEq/L (136-147)
[2017-01-10 01:11] LABS: GLUCOSE 326 mg/dL (70-99)
[2017-01-10 01:12] LABS: ANION GAP 6 MEQ/L (2-14)
[2017-01-10 01:14] LABS: GFR ESTIMATE (CALCULATED) > 59 mL/min/
[2017-01-10 01:15] LABS: UREA NITROGEN (BUN) 17 mg/dL (9-23)
[2017-01-10 02:59] LABS: ADD MIUA? NO; BILIRUBIN NEGATIVE; BLOOD NEGATIVE; COLOR STRAW ((YELLOW)); GLUCOSE (STRIP) >=500; KETONES 20; LEUKOCYTES NEGATIVE; NITRITE NEGATIVE; PROTEIN (STRIP) NEGATIVE; SPECIFIC GRAVITY 1.028 (1.000-1.030); UROBILINOGEN 0.2 MG/DL (0.2-1.0)
[2017-01-10 03:41] LABS: AMPHETAMINES QUANT VALUE 0 NG/ML; BARBITUATES QUANT VALUE 0 NG/ML; BENZODIAZEPINES QUANT VALUE 0 NG/ML; BENZODIAZEPINES, URINE SCREEN Negative (200 ng/mL); MARIJUANA QUANT VALUE 0 NG/ML; OPIATES QUANTITATIVE VALUE 0 NG/ML; PHENCYCLIDINE QUANT VALUE 0 NG/ML
[2017-01-10 03:45] LABS: MAGNESIUM 2.2 mg/dL (1.3-2.7)
[2017-01-10 04:20] LABS: POINT-OF-CARE METER ID UU13113731; POINT-OF-CARE USER ID PHATLC
[2017-01-10 06:14] LABS: HEMATOCRIT 42.6 % (38.0-50.0); MCH 30.4 PG (29.0-34.0); MCHC 32.9 G/DL (30.0-36.0); MCV 92.6 FL (86-99); MEAN PLAT.VOLUME 10.3 uM^3 (9.0-12.4); PLATELET COUNT 311 K/uL (156-360); RBC DIS.WIDTH-CV 13.2 % (11.8-14.6); RBC DIS.WIDTH-SD 44.7 % (39-53); WHITE BLOOD COUNT 5.2 K/uL (4.1-10.2)
[2017-01-10 06:27] LABS: ANION GAP 14 MEQ/L (2-14); CHLORIDE 100 MEQ/L (99-109); GFR ESTIMATE (CALCULATED) > 59 mL/min/; GLUCOSE 189 mg/dL (70-99); POTASSIUM 4.1 MEQ/L (3.7-5.4); SAMPLE HEMOLYSIS CHECK 0; SAMPLE ICTERIC CHECK 0; SAMPLE LIPEMIA CHECK 0; SODIUM 133 MEQ/L (136-147); UREA NITROGEN (BUN) 15 mg/dL (9-23)
[2017-01-10 09:16] LABS: POINT-OF-CARE METER ID UU13113731
[2017-01-10 10:52] LABS: POINT-OF-CARE METER ID UU14162636; POINT-OF-CARE USER ID PHATLC
[2017-01-10 13:11] LABS: ANION GAP 9 MEQ/L (2-14); CHLORIDE 102 MEQ/L (99-109); GFR ESTIMATE (CALCULATED) > 59 mL/min/; GLUCOSE 270 mg/dL (70-99); POTASSIUM 3.6 MEQ/L (3.7-5.4); SAMPLE HEMOLYSIS CHECK 0; SAMPLE ICTERIC CHECK 0; SAMPLE LIPEMIA CHECK 0; SODIUM 134 MEQ/L (136-147); UREA NITROGEN (BUN) 12 mg/dL (9-23)
[2017-01-10 17:39] LABS: POINT-OF-CARE METER ID UU14188625
[2017-01-11 00:34] LABS: POINT-OF-CARE METER ID UU14188625; POINT-OF-CARE USER ID BHSKTD
[2017-01-11 07:13] LABS: ANION GAP 12 MEQ/L (2-14); CHLORIDE 102 MEQ/L (99-109); GFR ESTIMATE (CALCULATED) > 59 mL/min/; GLUCOSE 391 mg/dL (70-99); POTASSIUM 3.5 MEQ/L (3.7-5.4); SAMPLE HEMOLYSIS CHECK 0; SAMPLE ICTERIC CHECK 0; SAMPLE LIPEMIA CHECK 0; SODIUM 139 MEQ/L (136-147); UREA NITROGEN (BUN) 10 mg/dL (9-23)
[2017-01-11 08:21] VITALS: BP 109/55
[2017-01-11 16:42] VITALS: BP 136/80
[2017-01-11 17:10] LABS: POINT-OF-CARE METER ID UU14174225
[2017-01-11 21:56] LABS: POINT-OF-CARE METER ID UU14174225
[2017-01-11 23:35] VITALS: BP 130/83
[2017-01-12 08:07] LABS: POINT-OF-CARE METER ID UU14188625
[2017-01-12 08:28] LABS: ANION GAP 13 MEQ/L (2-14); CHLORIDE 105 MEQ/L (99-109); GFR ESTIMATE (CALCULATED) > 59 mL/min/; GLUCOSE 275 mg/dL (70-99); POTASSIUM 3.8 MEQ/L (3.7-5.4); SAMPLE HEMOLYSIS CHECK 0; SAMPLE ICTERIC CHECK 0; SAMPLE LIPEMIA CHECK 0; SODIUM 142 MEQ/L (136-147); UREA NITROGEN (BUN) 14 mg/dL (9-23)
[2017-01-12 08:32] VITALS: BP 122/70
[2017-01-12 09:54] LABS: FERRITIN 33 NG/ML (22-322)
[2017-01-12] MEDS ORDERED: LEVEMIR100 UNIT/2 SC (11:45)
[2017-01-12] MEDS ORDERED: NOVOLOG PE100 UNITS/ SC (11:45)
[2017-01-12] MEDS ORDERED: IBUPROFEN800 MG PO ×2 (12:22→12:33)
[2017-01-12] MEDS ORDERED: ZOLOFT100 MG PO (12:27)
== END 2017-01-12 13:21 | disposition home or self-care (01) | DRG 638 ==
LOC: EME → EDBD 00:35 → EDOF 03:51 → 4WEST 03:51 → 5SOUTH 03:51 → 4WEST 05:15 → 5SOUTH 01-10 08:43 → 4WEST 01-10 08:51 → 5SOUTH 01-10 13:12
PROVIDERS: Emergency Medicine; Internal Medicine; Obstetrics & Gynecology
DX: E10.10 Type 1 diabetes mellitus with ketoacidosis without coma (principal); E86.0 Dehydration; B18.2 Chronic viral hepatitis C; J45.909 Unspecified asthma, uncomplicated; Z76.5 Malingerer [conscious simulation]; Z91.19 Patient's noncompliance with other medical treatment and regimen; Z59.0 Homelessness; F11.20 Opioid dependence, uncomplicated; G89.4 Chronic pain syndrome; G44.209 Tension-type headache, unspecified, not intractable; F31.9 Bipolar disorder, unspecified; R56.9 Unspecified convulsions; Z86.711 Personal history of pulmonary embolism; S62.91XA Unspecified fracture of right hand, initial encounter for closed fracture; S62.336A Displaced fracture of neck of fifth metacarpal bone, right hand, initial encounter for closed fracture; Y29.XXXA Contact with blunt object, undetermined intent, initial encounter; S62.394A Other fracture of fourth metacarpal bone, right hand, initial encounter for closed fracture; W22.8XXA Striking against or struck by other objects, initial encounter; F99 Mental disorder, not otherwise specified; F60.9 Personality disorder, unspecified; F17.210 Nicotine dependence, cigarettes, uncomplicated
CPT/HCPCS: 36600; 71010; 73130; 80048; 80048 91; 80306 90; 81003; 82010; 82550; 82728; 82803; 82948; 83036; 83735; 84100; 84484; 85025; 85027; 87641; 99281; 99285; J1815; J7030; J7050; J7120

== ENCOUNTER 2017-01-20 17:04 | Emergency (ER) | payer OTHER ==
[~2017-01-20] VITALS: Ht 182.9 cm; Wt 83.8 kg
[~2017-01-20 17:04] MED LIST changes: +IBUPROFEN800 MG PO
[2017-01-20 21:10] LABS: POINT-OF-CARE METER ID UU13113778
[2017-01-20 22:21] LABS: HEMATOCRIT 36.3 % (38.0-50.0); MCH 30.1 PG (29.0-34.0); MCHC 33.1 G/DL (30.0-36.0); MEAN PLAT.VOLUME 9.6 uM^3 (9.0-12.4); PLATELET COUNT 480 K/uL (156-360); RBC DIS.WIDTH-CV 12.9 % (11.8-14.6); RBC DIS.WIDTH-SD 43.3 % (39-53); RED BLOOD COUNT 3.99 M/uL (4.00-5.50); WHITE BLOOD COUNT 7.2 K/uL (4.1-10.2)
[2017-01-20 22:22] LABS: CHLORIDE 102 mEq/L (99-109); POTASSIUM 4.3 mEq/L (3.7-5.4); SODIUM 138 mEq/L (136-147)
[2017-01-20 22:23] LABS: GLUCOSE 350 mg/dL (70-99)
[2017-01-20 22:25] LABS: ANION GAP 14 MEQ/L (2-14)
[2017-01-20 22:27] LABS: GFR ESTIMATE (CALCULATED) > 59 mL/min/
[2017-01-20 22:28] LABS: UREA NITROGEN (BUN) 17 mg/dL (9-23)
[2017-01-20 22:30] LABS: TROP-I INTERPRETATION NEGATIVE; TROPONIN-I < 0.01 ng/mL (0.0-0.30)
[2017-01-21] MEDS ORDERED: NEURONTIN600 MG PO (00:11)
[2017-01-21 00:36] VITALS: BP 109/64
== END 2017-01-21 00:37 | disposition home or self-care (01) ==
LOC: EME 17:04
DX: E11.42 Type 2 diabetes mellitus with diabetic polyneuropathy (principal); E11.65 Type 2 diabetes mellitus with hyperglycemia; Z79.4 Long term (current) use of insulin; K08.89 Other specified disorders of teeth and supporting structures; G89.29 Other chronic pain; Z86.711 Personal history of pulmonary embolism; Z86.718 Personal history of other venous thrombosis and embolism; F17.200 Nicotine dependence, unspecified, uncomplicated
CPT/HCPCS: 71020; 80048; 82948; 84484; 85027; 93005; 99281; 99284

== ENCOUNTER 2017-01-29 10:16 | Emergency (ER) | payer OTHER ==
[~2017-01-29] VITALS: Ht 185.4 cm; Wt 85.1 kg
[2017-01-29 10:26] VITALS: BP 116/94
[2017-01-29 11:20] LABS: POINT-OF-CARE METER ID UU13113702
[2017-01-29 12:03] LABS: HEMATOCRIT 39.3 % (38.0-50.0); MCH 30.3 PG (29.0-34.0); MCHC 33.3 G/DL (30.0-36.0); MEAN PLAT.VOLUME 9.7 uM^3 (9.0-12.4); PLATELET COUNT 397 K/uL (156-360); RBC DIS.WIDTH-CV 12.7 % (11.8-14.6); RBC DIS.WIDTH-SD 42.2 % (39-53); RED BLOOD COUNT 4.32 M/uL (4.00-5.50)
[2017-01-29 12:12] LABS: CHLORIDE 101 mEq/L (99-109); POTASSIUM 3.1 mEq/L (3.7-5.4); SODIUM 141 mEq/L (136-147)
[2017-01-29 12:14] LABS: GLUCOSE 54 mg/dL (70-99)
[2017-01-29 12:16] LABS: ANION GAP 13 MEQ/L (2-14)
[2017-01-29 12:18] LABS: GFR ESTIMATE (CALCULATED) > 59 mL/min/
[2017-01-29 12:19] LABS: UREA NITROGEN (BUN) 9 mg/dL (9-23)
[2017-01-29 12:23] LABS: TROP-I INTERPRETATION NEGATIVE; TROPONIN-I < 0.01 ng/mL (0.0-0.30)
== END 2017-01-29 13:54 | disposition left against medical advice (07) ==
LOC: EME 10:16 → EXP 10:16
PROVIDERS: Physician Assistant
DX: K08.89 Other specified disorders of teeth and supporting structures (principal); E10.649 Type 1 diabetes mellitus with hypoglycemia without coma; R94.31 Abnormal electrocardiogram [ECG] [EKG]; Z86.718 Personal history of other venous thrombosis and embolism; Z79.01 Long term (current) use of anticoagulants
CPT/HCPCS: 71010; 80048; 81003; 82948; 84484; 85027; 93005; 99281; 99284; J2310

== ENCOUNTER 2017-01-30 01:37 | Emergency (ER) | payer OTHER ==
[~2017-01-30] VITALS: Ht 185.4 cm; Wt 83.0 kg
[2017-01-30 03:47] LABS: HEMATOCRIT 38.6 % (38.0-50.0); MCH 30.3 PG (29.0-34.0); MCHC 33.2 G/DL (30.0-36.0); MCV 91.5 FL (86-99); MEAN PLAT.VOLUME 9.3 uM^3 (9.0-12.4); PLATELET COUNT 296 K/uL (156-360); RBC DIS.WIDTH-CV 12.8 % (11.8-14.6); RBC DIS.WIDTH-SD 42.5 % (39-53); RED BLOOD COUNT 4.22 M/uL (4.00-5.50); WHITE BLOOD COUNT 4.9 K/uL (4.1-10.2)
[2017-01-30 03:52] LABS: CHLORIDE 98 mEq/L (99-109)
[2017-01-30 03:55] LABS: ANION GAP 9 MEQ/L (2-14); GLUCOSE 349 mg/dL (70-99); POTASSIUM 4.2 mEq/L (3.7-5.4); SODIUM 133 mEq/L (136-147)
[2017-01-30 03:58] LABS: GFR ESTIMATE (CALCULATED) > 59 mL/min/
[2017-01-30 03:59] LABS: UREA NITROGEN (BUN) 10 mg/dL (9-23)
[2017-01-30 04:38] VITALS: BP 96/77
== END 2017-01-30 04:38 | disposition home or self-care (01) ==
LOC: EME 01:37 → EXP 01:37
PROVIDERS: Emergency Medicine
DX: E10.65 Type 1 diabetes mellitus with hyperglycemia (principal); E10.42 Type 1 diabetes mellitus with diabetic polyneuropathy; Z79.4 Long term (current) use of insulin
CPT/HCPCS: 80048; 82800; 85027; 99281; 99284

== ENCOUNTER 2017-01-31 19:10 | Emergency (ER) | payer OTHER ==
[~2017-01-31] VITALS: Ht 188 cm; Wt 82.6 kg
[2017-01-31 19:35] LABS: CREATININE 0.9 mg/dL (0.6-1.3); POTASSIUM 3.8 mEq/L (3.7-5.4)
[2017-01-31 19:39] LABS: EOSINOPHIL (%) 3.5 % (0-5); EOSINOPHIL COUNT 0.1 K/uL (0-0.3); HEMATOCRIT 33.3 % (38.0-50.0); IMMATURE GRANULOCYTE (%) 0.5 % (0.0-0.7); INSTRUMENT ABS NEUTROPHIL CT 1.7 K/uL; LYMPHOCYTE COUNT 1.5 K/uL (1.0-2.8); MCHC 33.6 G/DL (30.0-36.0); MCV 89.3 FL (86-99); MEAN PLAT.VOLUME 9.5 uM^3 (9.0-12.4); MONOCYTE (%) 14.4 % (3-12); MONOCYTE COUNT 0.6 K/uL (0-0.8); NEUTROPHIL (%) 42.6 % (45-76); NEUTROPHIL COUNT 1.7 K/uL (1.8-6.4); PLATELET COUNT 303 K/uL (156-360); RBC DIS.WIDTH-CV 12.8 % (11.8-14.6); RED BLOOD COUNT 3.73 M/uL (4.00-5.50)
[2017-01-31 19:40] LABS: CARBON DIOXIDE (BICARBONATE) 31.9 MEQ/L (20-31)
[2017-01-31 19:49] LABS: CHLORIDE 93 mEq/L (99-109); POTASSIUM 3.9 mEq/L (3.7-5.4); SODIUM 130 mEq/L (136-147)
[2017-01-31 19:53] LABS: ANION GAP 9 MEQ/L (2-14); TOTAL BILIRUBIN 0.4 mg/dL (0.0-1.0)
[2017-01-31 19:55] LABS: ALKALINE PHOSPHATASE 117 IU/L (3-129); GFR ESTIMATE (CALCULATED) > 59 mL/min/
[2017-01-31 19:56] LABS: UREA NITROGEN (BUN) 8 mg/dL (9-23)
[2017-01-31 19:58] LABS: DIRECT BILIRUBIN 0.2 mg/dL (0.0-0.3)
[2017-01-31 19:59] LABS: LIPASE 5 U/L (1.0-51.0)
[2017-01-31 20:02] LABS: GLUCOSE 710 mg/dL (70-99)
[2017-01-31 20:11] LABS: SERUM ETHYL ALCOHOL < 10 mg/dL
[2017-01-31 21:57] LABS: POINT-OF-CARE METER ID UU14100415
[2017-01-31 22:22] VITALS: BP 129/84
== END 2017-01-31 22:22 | disposition home or self-care (01) ==
LOC: EME 19:10
PROVIDERS: Emergency Medicine
DX: E11.65 Type 2 diabetes mellitus with hyperglycemia (principal); K21.9 Gastro-esophageal reflux disease without esophagitis; F17.200 Nicotine dependence, unspecified, uncomplicated; Z86.718 Personal history of other venous thrombosis and embolism
CPT/HCPCS: 80047; 80048; 80076; 81003; 82803; 82948; 83690; 85025; 99281; 99285; G0480; J2310; J7030

== ENCOUNTER 2017-02-01 12:00 | Emergency (ER) | payer OTHER ==
[~2017-02-01] VITALS: Ht 185.4 cm; Wt 85.5 kg
[2017-02-01 14:18] VITALS: BP 138/82
== END 2017-02-01 14:21 | disposition home or self-care (01) ==
LOC: EME 12:00
DX: S62.398D Other fracture of other metacarpal bone, subsequent encounter for fracture with routine healing (principal); G62.9 Polyneuropathy, unspecified; J45.909 Unspecified asthma, uncomplicated; K21.9 Gastro-esophageal reflux disease without esophagitis; F31.9 Bipolar disorder, unspecified; F17.200 Nicotine dependence, unspecified, uncomplicated
CPT/HCPCS: 99281; 99284

== ENCOUNTER 2017-02-02 13:31 | Emergency (ER) | payer OTHER ==
[~2017-02-02] VITALS: Ht 185.4 cm; Wt 81.7 kg
[2017-02-02 14:29] LABS: HEMATOCRIT 37.3 % (38.0-50.0); MCH 30.1 PG (29.0-34.0); MCHC 33.5 G/DL (30.0-36.0); MCV 89.9 FL (86-99); MEAN PLAT.VOLUME 9.6 uM^3 (9.0-12.4); PLATELET COUNT 302 K/uL (156-360); RBC DIS.WIDTH-CV 12.7 % (11.8-14.6); RBC DIS.WIDTH-SD 41.4 % (39-53); RED BLOOD COUNT 4.15 M/uL (4.00-5.50); WHITE BLOOD COUNT 4.6 K/uL (4.1-10.2)
[2017-02-02 15:10] LABS: ANION GAP 15 MEQ/L (2-14); CHLORIDE 92 MEQ/L (99-109); GFR ESTIMATE (CALCULATED) > 59 mL/min/; POTASSIUM 4.1 MEQ/L (3.7-5.4); SAMPLE HEMOLYSIS CHECK 0; SAMPLE ICTERIC CHECK 0; SAMPLE LIPEMIA CHECK 0; SODIUM 130 MEQ/L (136-147); UREA NITROGEN (BUN) 11 mg/dL (9-23)
[2017-02-02 15:31] LABS: GLUCOSE 685 mg/dL (70-99)
[2017-02-02 16:21] VITALS: BP 111/59
[2017-02-03] MEDS ORDERED: NOVOLOG PE100 UNITS/ SC (22:38)
[2017-02-03] MEDS ORDERED: LEVEMIR100 UNIT/2 SC (22:38)
[2017-02-03] MEDS ORDERED: OXYCODONE HCL15 MG PO (22:39)
[2017-02-03] MEDS ORDERED: VYVANSE40 MG PO (22:39)
[2017-02-03] MEDS ORDERED: FENTANYL1 EAC1 TD (22:39)
[2017-02-03] MEDS ORDERED: XARELTO20 MG PO (22:42)
== END 2017-02-02 16:32 | disposition home or self-care (01) ==
LOC: EME 13:31
DX: E11.65 Type 2 diabetes mellitus with hyperglycemia (principal); E86.0 Dehydration; Z79.4 Long term (current) use of insulin; F32.9 Major depressive disorder, single episode, unspecified; G40.909 Epilepsy, unspecified, not intractable, without status epilepticus; Z88.6 Allergy status to analgesic agent; F17.200 Nicotine dependence, unspecified, uncomplicated
CPT/HCPCS: 80048; 85027; 99281; 99283; J2405; J3010; J7030

== ENCOUNTER 2017-02-03 19:17 | Inpatient (IN) | payer OTHER ==
[~2017-02-03] VITALS: Ht 185.4 cm; Wt 80.0 kg
[2017-02-03 21:07] LABS: CARBON DIOXIDE (BICARBONATE) 18.9 MEQ/L (20-31); HEMATOCRIT 42.2 % (38.0-50.0); MCH 30.1 PG (29.0-34.0); MCHC 32.7 G/DL (30.0-36.0); MCV 92.1 FL (86-99); MEAN PLAT.VOLUME 9.4 uM^3 (9.0-12.4); PLATELET COUNT 357 K/uL (156-360); RBC DIS.WIDTH-CV 12.9 % (11.8-14.6); RBC DIS.WIDTH-SD 43.1 % (39-53); RED BLOOD COUNT 4.58 M/uL (4.00-5.50); WHITE BLOOD COUNT 5.9 K/uL (4.1-10.2)
[2017-02-03 21:16] LABS: CHLORIDE 94 mEq/L (99-109); POTASSIUM 4.3 mEq/L (3.7-5.4); SODIUM 132 mEq/L (136-147)
[2017-02-03 21:19] LABS: ANION GAP 22 MEQ/L (2-14)
[2017-02-03 21:21] LABS: GFR ESTIMATE (CALCULATED) > 59 mL/min/
[2017-02-03 21:22] LABS: UREA NITROGEN (BUN) 9 mg/dL (9-23)
[2017-02-03 21:25] LABS: GLUCOSE 522 mg/dL (70-99)
[2017-02-03] MEDS ORDERED: NOVOLOG PE100 UNITS/ SC (22:38)
[2017-02-03] MEDS ORDERED: LEVEMIR100 UNIT/2 SC (22:38)
[2017-02-03] MEDS ORDERED: OXYCODONE HCL15 MG PO (22:39)
[2017-02-03] MEDS ORDERED: FENTANYL1 EAC1 TD (22:39)
[2017-02-03] MEDS ORDERED: VYVANSE40 MG PO (22:39)
[2017-02-03] MEDS ORDERED: XARELTO20 MG PO (22:42)
[2017-02-04] VITALS (22 sets, daily range): BP systolic 100–148; BP diastolic 58–96
[2017-02-04 00:02] LABS: POINT-OF-CARE METER ID UU14100415
[2017-02-04 00:10] LABS: SAMPLE HEMOLYSIS CHECK 0; SAMPLE ICTERIC CHECK 0; SAMPLE LIPEMIA CHECK 0
[2017-02-04 00:46] LABS: POINT-OF-CARE METER ID UU14100415
[2017-02-04 01:19] LABS: POINT-OF-CARE METER ID UU14100415
[2017-02-04 01:21] LABS: CHLORIDE 100 mEq/L (99-109); POTASSIUM 3.8 mEq/L (3.7-5.4); SODIUM 135 mEq/L (136-147)
[2017-02-04 01:23] LABS: GLUCOSE 328 mg/dL (70-99)
[2017-02-04 01:24] LABS: ANION GAP 17 MEQ/L (2-14)
[2017-02-04 01:27] LABS: GFR ESTIMATE (CALCULATED) > 59 mL/min/
[2017-02-04 01:28] LABS: UREA NITROGEN (BUN) 7 mg/dL (9-23)
[2017-02-04 02:24] LABS: POINT-OF-CARE METER ID UU14162636
[2017-02-04 02:33] LABS: ADD MIUA? NO; BILIRUBIN NEGATIVE; BLOOD NEGATIVE; COLOR STRAW ((YELLOW)); GLUCOSE (STRIP) >=500; KETONES 80; LEUKOCYTES NEGATIVE; NITRITE NEGATIVE; PROTEIN (STRIP) NEGATIVE; SPECIFIC GRAVITY 1.025 (1.000-1.030); UROBILINOGEN 0.2 MG/DL (0.2-1.0)
[2017-02-04 02:45] LABS: METH RESISTANT S AUREUS PCR NEGATIVE (NEGATIVE)
[2017-02-04 02:46] LABS: PROBE CHECK PASS; SPECIMEN PROCESSING CONTROL PASS
[2017-02-04 03:32] LABS: POINT-OF-CARE METER ID UU14162636
[2017-02-04 04:23] LABS: AMPHETAMINES QUANT VALUE 0 NG/ML; BARBITUATES QUANT VALUE 0 NG/ML; BENZODIAZEPINES QUANT VALUE 0 NG/ML; BENZODIAZEPINES, URINE SCREEN Negative (200 ng/mL); OPIATES QUANTITATIVE VALUE 0 NG/ML; PHENCYCLIDINE QUANT VALUE 0 NG/ML
[2017-02-04 04:32] LABS: POINT-OF-CARE METER ID UU14162636
[2017-02-04 05:29] LABS: POINT-OF-CARE METER ID UU14162636
[2017-02-04 06:00] LABS: ANION GAP 14 MEQ/L (2-14); CHLORIDE 102 MEQ/L (99-109); GFR ESTIMATE (CALCULATED) > 59 mL/min/; GLUCOSE 186 mg/dL (70-99); POTASSIUM 3.5 MEQ/L (3.7-5.4); SAMPLE HEMOLYSIS CHECK 0; SAMPLE ICTERIC CHECK 0; SAMPLE LIPEMIA CHECK 0; SODIUM 133 MEQ/L (136-147); UREA NITROGEN (BUN) 8 mg/dL (9-23)
[2017-02-04 06:27] LABS: POINT-OF-CARE METER ID UU14162636
[2017-02-04 06:59] LABS: Estimated Average Glucose 318 mg/dL (70-123); HEMOGLOBIN A1c (GLYCOHEMOGLOB) 12.7 % HGB (Below 5.7)
[2017-02-04 07:48] LABS: POINT-OF-CARE METER ID UU14162636
[2017-02-04 08:43] LABS: POINT-OF-CARE METER ID UU14162636
[2017-02-04 09:11] LABS: ANION GAP 10 MEQ/L (2-14); CHLORIDE 101 MEQ/L (99-109); GFR ESTIMATE (CALCULATED) > 59 mL/min/; GLUCOSE 208 mg/dL (70-99); POTASSIUM 3.4 MEQ/L (3.7-5.4); SAMPLE HEMOLYSIS CHECK 0; SAMPLE ICTERIC CHECK 0; SAMPLE LIPEMIA CHECK 0; SODIUM 134 MEQ/L (136-147); UREA NITROGEN (BUN) 7 mg/dL (9-23)
[2017-02-04 10:20] LABS: POINT-OF-CARE METER ID UU14162636
[2017-02-04 11:14] LABS: POINT-OF-CARE METER ID UU14162636
[2017-02-04 12:31] LABS: POINT-OF-CARE METER ID UU14162636
[2017-02-04 12:59] LABS: ANION GAP 11 MEQ/L (2-14); CHLORIDE 102 MEQ/L (99-109); GFR ESTIMATE (CALCULATED) > 59 mL/min/; GLUCOSE 139 mg/dL (70-99); POTASSIUM 3.3 MEQ/L (3.7-5.4); SAMPLE HEMOLYSIS CHECK 0; SAMPLE ICTERIC CHECK 0; SAMPLE LIPEMIA CHECK 0; SODIUM 136 MEQ/L (136-147); UREA NITROGEN (BUN) 6 mg/dL (9-23)
[2017-02-04 13:27] LABS: POINT-OF-CARE METER ID UU14162636
[2017-02-04 13:45] LABS: POINT-OF-CARE METER ID UU13113803
[2017-02-04 14:43] LABS: POINT-OF-CARE METER ID UU13113803
[2017-02-04 15:49] LABS: POINT-OF-CARE METER ID UU13113803
[2017-02-04 16:38] LABS: ANION GAP 11 MEQ/L (2-14); CHLORIDE 103 MEQ/L (99-109); GFR ESTIMATE (CALCULATED) > 59 mL/min/; GLUCOSE 135 mg/dL (70-99); POTASSIUM 3.3 MEQ/L (3.7-5.4); SAMPLE HEMOLYSIS CHECK 0; SAMPLE ICTERIC CHECK 0; SAMPLE LIPEMIA CHECK 0; SODIUM 136 MEQ/L (136-147); UREA NITROGEN (BUN) 5 mg/dL (9-23)
[2017-02-04 18:04] LABS: POINT-OF-CARE METER ID UU14162636
[2017-02-04 20:52] LABS: ANION GAP 11 MEQ/L (2-14); CHLORIDE 100 MEQ/L (99-109); GFR ESTIMATE (CALCULATED) > 59 mL/min/; POTASSIUM 3.5 MEQ/L (3.7-5.4); SAMPLE HEMOLYSIS CHECK 0; SAMPLE ICTERIC CHECK 0; SAMPLE LIPEMIA CHECK 1; SODIUM 134 MEQ/L (136-147); UREA NITROGEN (BUN) 7 mg/dL (9-23)
[2017-02-04 21:01] LABS: GLUCOSE 336 mg/dL (70-99)
[2017-02-04 21:37] LABS: POINT-OF-CARE METER ID UU14162636; POINT-OF-CARE USER ID PHATLC
[2017-02-04 23:20] LABS: POINT-OF-CARE METER ID UU13113803; POINT-OF-CARE USER ID PHATLC
[2017-02-05] VITALS (8 sets, daily range): BP systolic 119–150; BP diastolic 65–102
[2017-02-05 11:00] LABS: ANION GAP 18 MEQ/L (2-14); CHLORIDE 106 MEQ/L (99-109); GFR ESTIMATE (CALCULATED) > 59 mL/min/; MAGNESIUM 1.9 mg/dl (1.3-2.7); POTASSIUM 3.6 MEQ/L (3.7-5.4); UREA NITROGEN (BUN) 6 mg/dL (9-23)
[2017-02-05 11:03] LABS: GLUCOSE 115 mg/dL (70-99); SODIUM 144 MEQ/L (136-147)
[2017-02-06 06:09] LABS: EOSINOPHIL (%) 3.7 % (0-5); EOSINOPHIL COUNT 0.2 K/uL (0-0.3); HEMATOCRIT 37.8 % (38.0-50.0); IMMATURE GRANULOCYTE (%) 0.4 % (0.0-0.7); LYMPHOCYTE COUNT 2.9 K/uL (1.0-2.8); MCHC 34.7 G/DL (30.0-36.0); MCV 89.6 FL (86-99); MEAN PLAT.VOLUME 9.3 uM^3 (9.0-12.4); MONOCYTE (%) 8.5 % (3-12); MONOCYTE COUNT 0.5 K/uL (0-0.8); NEUTROPHIL (%) 34.9 % (45-76); PLATELET COUNT 301 K/uL (156-360); RBC DIS.WIDTH-CV 13.1 % (11.8-14.6); RBC DIS.WIDTH-SD 42.8 % (39-53); RED BLOOD COUNT 4.22 M/uL (4.00-5.50); WHITE BLOOD COUNT 5.6 K/uL (4.1-10.2)
[2017-02-06 06:48] LABS: ANION GAP 9 MEQ/L (2-14); CHLORIDE 104 MEQ/L (99-109); GFR ESTIMATE (CALCULATED) > 59 mL/min/; GLUCOSE 103 mg/dL (70-99); POTASSIUM 3.4 MEQ/L (3.7-5.4); SAMPLE HEMOLYSIS CHECK 0; SAMPLE ICTERIC CHECK 0; SAMPLE LIPEMIA CHECK 0; SODIUM 141 MEQ/L (136-147); UREA NITROGEN (BUN) 6 mg/dL (9-23)
[2017-02-06 07:47] VITALS: BP 124/83
[2017-02-06 15:18] VITALS: BP 142/87
[2017-02-06 21:04] LABS: POINT-OF-CARE METER ID UU13113717
[2017-02-06 23:34] VITALS: BP 124/75
[2017-02-07 06:15] LABS: BASOPHIL COUNT 0.1 K/uL (0-0.1); EOSINOPHIL (%) 3.8 % (0-5); EOSINOPHIL COUNT 0.2 K/uL (0-0.3); HEMATOCRIT 42.8 % (38.0-50.0); IMMATURE GRANULOCYTE (%) 0.5 % (0.0-0.7); INSTRUMENT ABS NEUTROPHIL CT 2.2 K/uL; MCH 30.4 PG (29.0-34.0); MCHC 33.6 G/DL (30.0-36.0); MCV 90.3 FL (86-99); MEAN PLAT.VOLUME 9.5 uM^3 (9.0-12.4); MONOCYTE (%) 8.8 % (3-12); MONOCYTE COUNT 0.5 K/uL (0-0.8); NEUTROPHIL (%) 36.8 % (45-76); NEUTROPHIL COUNT 2.2 K/uL (1.8-6.4); PLATELET COUNT 327 K/uL (156-360); RBC DIS.WIDTH-SD 43.2 % (39-53); RED BLOOD COUNT 4.74 M/uL (4.00-5.50)
[2017-02-07 06:51] LABS: ANION GAP 11 MEQ/L (2-14); CHLORIDE 103 MEQ/L (99-109); GFR ESTIMATE (CALCULATED) > 59 mL/min/; GLUCOSE 139 mg/dL (70-99); SAMPLE HEMOLYSIS CHECK 0; SAMPLE ICTERIC CHECK 0; SAMPLE LIPEMIA CHECK 0; SODIUM 140 MEQ/L (136-147); UREA NITROGEN (BUN) 7 mg/dL (9-23)
[2017-02-07 06:56] LABS: POTASSIUM 4.1 MEQ/L (3.7-5.4)
[2017-02-07 09:45] VITALS: BP 113/67
[2017-02-07] MEDS ORDERED: XARELTO20 MG PO (11:07)
[2017-02-07] MEDS ORDERED: ZOLOFT100 MG PO (11:08)
[2017-02-07] MEDS ORDERED: KLONOPIN1 MG PO (11:09)
[2017-02-07] MEDS ORDERED: ULTRAM50 MG PO (11:14)
[2017-02-07 11:30] VITALS: BP 113/67
[2017-02-07 17:07] LABS: POINT-OF-CARE METER ID UU13113717
== END 2017-02-07 18:39 | disposition home or self-care (01) | DRG 638 ==
LOC: EME 19:17 → RME 19:17 → 5SOUTH 22:34 → 4WEST 22:34 → EDOF 22:34 → 4WEST 02-04 01:21 → 5SOUTH 02-05 01:50
PROVIDERS: Emergency Medicine; Internal Medicine; Physician Assistant
DX: E10.10 Type 1 diabetes mellitus with ketoacidosis without coma (principal); N17.9 Acute kidney failure, unspecified; B19.20 Unspecified viral hepatitis C without hepatic coma; E87.6 Hypokalemia; D64.9 Anemia, unspecified; F10.10 Alcohol abuse, uncomplicated; F11.10 Opioid abuse, uncomplicated; F12.10 Cannabis abuse, uncomplicated; J45.909 Unspecified asthma, uncomplicated; K21.9 Gastro-esophageal reflux disease without esophagitis; F41.9 Anxiety disorder, unspecified; G43.909 Migraine, unspecified, not intractable, without status migrainosus; F31.9 Bipolar disorder, unspecified; G89.29 Other chronic pain; T38.3X6A Underdosing of insulin and oral hypoglycemic [antidiabetic] drugs, initial encounter; F17.200 Nicotine dependence, unspecified, uncomplicated; Z91.19 Patient's noncompliance with other medical treatment and regimen; Z79.4 Long term (current) use of insulin; Z86.018 Personal history of other benign neoplasm; Z80.6 Family history of leukemia; Z81.8 Family history of other mental and behavioral disorders; Z88.5 Allergy status to narcotic agent; S62.306D Unspecified fracture of fifth metacarpal bone, right hand, subsequent encounter for fracture with routine healing; Z59.0 Homelessness
CPT/HCPCS: 71010; 73130; 80048; 80048 91; 80306 90; 81003; 82010; 82803; 82948; 83036; 83735; 84100; 85025; 85027; 87641; 94640; 99202; 99281; 99285; J1644; J1815; J1885; J7050; J7120; S0028

== ENCOUNTER 2018-03-10 19:49 | Inpatient (IN) | payer OTHER ==
[~2018-03-10] VITALS: Ht 185.4 cm; Wt 108.2 kg
[~2018-03-10 19:49] MED LIST changes: +ULTRAM50 MG PO
[2018-03-10 20:23] LABS: BASOPHIL (%) 0.7 % (0-1); EOSINOPHIL (%) 2.6 % (0-5); EOSINOPHIL COUNT 0.2 K/uL (0-0.3); HEMOGLOBIN 14.2 G/DL (12.5-16.6); IMMATURE GRANULOCYTE (%) 0.9 % (0.0-0.7); LYMPHOCYTE (%) 19.1 % (15-42); LYMPHOCYTE COUNT 1.1 K/uL (1.0-2.8); MCH 31.2 PG (29.0-34.0); MCHC 34.6 G/DL (30.0-36.0); MCV 90.1 FL (86-99); MONOCYTE (%) 10.6 % (3-12); MONOCYTE COUNT 0.6 K/uL (0-0.8); NEUTROPHIL (%) 66.1 % (45-76); NEUTROPHIL COUNT 3.8 K/uL (1.8-6.4); PLATELET COUNT 357 K/uL (156-360); RBC DIS.WIDTH-CV 12.6 % (11.8-14.6); RBC DIS.WIDTH-SD 41.1 % (39-53); RED BLOOD COUNT 4.55 M/uL (4.00-5.50); WHITE BLOOD COUNT 5.8 K/uL (4.1-10.2)
[2018-03-10 20:27] LABS: ALBUMIN 4.1 g/dL (3.2-4.8)
[2018-03-10 20:28] LABS: CHLORIDE 87 mEq/L (99-109); POTASSIUM 4.3 mEq/L (3.7-5.4); SODIUM 124 mEq/L (136-147)
[2018-03-10 20:30] LABS: TOTAL PROTEIN 7.4 g/dL (6.4-8.3)
[2018-03-10 20:31] LABS: GLUCOSE > 825 mg/dL (70-99)
[2018-03-10 20:32] LABS: TOTAL BILIRUBIN 0.6 mg/dL (0.0-1.0)
[2018-03-10 20:33] LABS: ALKALINE PHOSPHATASE 121 IU/L (3-129)
[2018-03-10 20:34] LABS: CREATININE 1.6 mg/dL (0.6-1.3); GFR ESTIMATE (CALCULATED) 55 mL/min/ (58.99-99999)
[2018-03-10 20:35] LABS: AST (GOT) 13 IU/L (2-34); UREA NITROGEN (BUN) 7 mg/dL (9-23)
[2018-03-10 20:37] LABS: ALT (GPT) 13 IU/L (3-49)
[2018-03-10 20:38] LABS: APPEARANCE CLEAR ((CLEAR)); BILIRUBIN NEGATIVE; BLOOD NEGATIVE; COLOR COLORLESS ((YELLOW)); GLUCOSE (STRIP) >=500; KETONES NEGATIVE; LEUKOCYTES NEGATIVE; NITRITE NEGATIVE; PROTEIN (STRIP) NEGATIVE; SPECIFIC GRAVITY 1.027 (1.000-1.030); UCUL ADDED? NO; UROBILINOGEN 0.2 MG/DL (0.2-1.0)
[2018-03-10 20:42] LABS: TROP-I INTERPRETATION NEGATIVE; TROPONIN-I < 0.01 ng/mL (0.0-0.30)
[2018-03-10] MEDS ORDERED: DESYREL100 MG PO (22:48)
[2018-03-11 01:45] VITALS: BP 130/76
[2018-03-11 03:36] VITALS: BP 127/60
[2018-03-11 06:23] LABS: CHLORIDE 99 MEQ/L (99-109); POTASSIUM 4.3 MEQ/L (3.7-5.4); UREA NITROGEN (BUN) 6 mg/dL (9-23)
[2018-03-11 06:24] LABS: CREATININE 0.9 MG/DL (0.6-1.3); GFR ESTIMATE (CALCULATED) > 59 mL/min/ (58.99-99999); SODIUM 134 MEQ/L (136-147)
[2018-03-11 06:45] LABS: GLUCOSE 468 mg/dL (70-99)
[2018-03-11 07:07] VITALS: BP 116/64
[2018-03-11 10:50] VITALS: BP 130/72
[2018-03-11 14:55] VITALS: BP 131/77
[2018-03-11 19:44] VITALS: BP 134/77
[2018-03-12 00:31] VITALS: BP 145/94
[2018-03-12 03:23] VITALS: BP 102/59
[2018-03-12 05:49] LABS: HEMATOCRIT 36.6 % (38.0-50.0); HEMOGLOBIN 12.5 G/DL (12.5-16.6); MCH 30.6 PG (29.0-34.0); MCHC 34.2 G/DL (30.0-36.0); MCV 89.7 FL (86-99); PLATELET COUNT 323 K/uL (156-360); RBC DIS.WIDTH-CV 12.7 % (11.8-14.6); RBC DIS.WIDTH-SD 41.2 % (39-53); RED BLOOD COUNT 4.08 M/uL (4.00-5.50); WHITE BLOOD COUNT 4.7 K/uL (4.1-10.2)
[2018-03-12 06:53] LABS: CHLORIDE 102 MEQ/L (99-109); CREATININE 0.8 MG/DL (0.6-1.3); GFR ESTIMATE (CALCULATED) > 59 mL/min/ (58.99-99999); GLUCOSE 234 mg/dL (70-99); POTASSIUM 4.1 MEQ/L (3.7-5.4); SODIUM 139 MEQ/L (136-147); UREA NITROGEN (BUN) 6 mg/dL (9-23)
[2018-03-12 07:32] VITALS: BP 127/78
[2018-03-12] MEDS ORDERED: MYCOSTATIN 100,60 ML PO (09:59)
[2018-03-12 11:30] VITALS: BP 135/82
== END 2018-03-12 14:05 | disposition home or self-care (01) | DRG 638 ==
LOC: EME 19:49 → EDOF 23:49 → 5EAST 23:49 → EDOF 23:49 → ENRESERV 23:55 → 5EAST 03-11 01:10
PROVIDERS: Emergency Medicine; Hospitalist
DX: E10.65 Type 1 diabetes mellitus with hyperglycemia (principal); N17.9 Acute kidney failure, unspecified; E87.1 Hypo-osmolality and hyponatremia; F11.20 Opioid dependence, uncomplicated; F15.20 Other stimulant dependence, uncomplicated; E10.40 Type 1 diabetes mellitus with diabetic neuropathy, unspecified; K21.9 Gastro-esophageal reflux disease without esophagitis; J45.909 Unspecified asthma, uncomplicated; G89.4 Chronic pain syndrome; G43.909 Migraine, unspecified, not intractable, without status migrainosus; F41.9 Anxiety disorder, unspecified; F17.200 Nicotine dependence, unspecified, uncomplicated; K08.89 Other specified disorders of teeth and supporting structures; Z86.718 Personal history of other venous thrombosis and embolism; Z86.711 Personal history of pulmonary embolism; Z91.14 Patient's other noncompliance with medication regimen; Z79.4 Long term (current) use of insulin; Z86.73 Personal history of transient ischemic attack (TIA), and cerebral infarction without residual deficits
CPT/HCPCS: 80048; 80053; 81003; 82948; 84484; 85025; 85027; 93005; 99281; 99285; G0378; J1815; J2405; J7030; J7040

== ENCOUNTER 2018-04-03 13:00 | Emergency (ER) | payer OTHER ==
[~2018-04-03] VITALS: Ht 182.9 cm; Wt 102.5 kg
[~2018-04-03 13:00] MED LIST changes: +MYCOSTATIN 100,60 ML PO
[2018-04-03 13:48] LABS: HEMATOCRIT 42.1 % (38.0-50.0); HEMOGLOBIN 14.6 G/DL (12.5-16.6); MCH 30.6 PG (29.0-34.0); MCHC 34.7 G/DL (30.0-36.0); MCV 88.3 FL (86-99); PLATELET COUNT 371 K/uL (156-360); RBC DIS.WIDTH-CV 12.2 % (11.8-14.6); RBC DIS.WIDTH-SD 39.6 % (39-53); RED BLOOD COUNT 4.77 M/uL (4.00-5.50); WHITE BLOOD COUNT 8.6 K/uL (4.1-10.2)
[2018-04-03 13:53] LABS: ALBUMIN 4.2 g/dL (3.2-4.8)
[2018-04-03 13:54] LABS: CHLORIDE 97 mEq/L (99-109); POTASSIUM 4.5 mEq/L (3.7-5.4); SODIUM 132 mEq/L (136-147)
[2018-04-03 13:56] LABS: TOTAL PROTEIN 7.6 g/dL (6.4-8.3)
[2018-04-03 13:58] LABS: TOTAL BILIRUBIN 0.3 mg/dL (0.0-1.0)
[2018-04-03 13:59] LABS: ALKALINE PHOSPHATASE 158 IU/L (3-129)
[2018-04-03 14:00] LABS: CREATININE 1.5 mg/dL (0.6-1.3); GFR ESTIMATE (CALCULATED) 59 mL/min/ (58.99-99999)
[2018-04-03 14:01] LABS: AST (GOT) 14 IU/L (2-34); UREA NITROGEN (BUN) 17 mg/dL (9-23)
[2018-04-03 14:01] LABS: APPEARANCE CLEAR ((CLEAR)); BILIRUBIN NEGATIVE; BLOOD NEGATIVE; COLOR COLORLESS ((YELLOW)); GLUCOSE (STRIP) >=500; KETONES 80; LEUKOCYTES NEGATIVE; NITRITE NEGATIVE; PROTEIN (STRIP) NEGATIVE; SPECIFIC GRAVITY 1.028 (1.000-1.030); UCUL ADDED? NO; UROBILINOGEN 0.2 MG/DL (0.2-1.0)
[2018-04-03 14:03] LABS: ALT (GPT) 12 IU/L (3-49); GLUCOSE 599 mg/dL (70-99); LIPASE 28 U/L (1.0-51.0)
[2018-04-03 14:43] LABS: CARBON DIOXIDE (BICARBONATE) 21.1 MEQ/L (20-31)
[2018-04-03] MEDS ORDERED: KLONOPIN1 MG PO (15:57)
[2018-04-03] MEDS ORDERED: XARELTO20 MG PO (15:59)
[2018-04-03] MEDS ORDERED: ROXYBOND30 MG PO (15:59)
[2018-04-03] MEDS ORDERED: BENADRYL ALLERG25 MG PO (16:00)
[2018-04-03] MEDS ORDERED: PRISTIQ50 MG PO (16:00)
[2018-04-03] MEDS ORDERED: ROXICODONE5 MG PO (19:17)
[2018-04-03 19:35] VITALS: BP 133/86
== END 2018-04-03 19:36 | disposition home or self-care (01) ==
LOC: EME 13:00
PROVIDERS: Emergency Medicine
DX: E10.65 Type 1 diabetes mellitus with hyperglycemia (principal); Z79.4 Long term (current) use of insulin; K21.9 Gastro-esophageal reflux disease without esophagitis; J45.909 Unspecified asthma, uncomplicated; G89.29 Other chronic pain; G43.909 Migraine, unspecified, not intractable, without status migrainosus; R56.9 Unspecified convulsions; B19.20 Unspecified viral hepatitis C without hepatic coma; F41.9 Anxiety disorder, unspecified; F32.9 Major depressive disorder, single episode, unspecified; F31.9 Bipolar disorder, unspecified; F17.200 Nicotine dependence, unspecified, uncomplicated; Z79.01 Long term (current) use of anticoagulants; Z86.711 Personal history of pulmonary embolism; Z86.73 Personal history of transient ischemic attack (TIA), and cerebral infarction without residual deficits; Z87.19 Personal history of other diseases of the digestive system; Z90.49 Acquired absence of other specified parts of digestive tract; Z88.5 Allergy status to narcotic agent
CPT/HCPCS: 71045; 80053; 81003; 82010; 82803; 82948; 83605; 83690; 85027; 93005; J2405; J3010; J7030